=== PATIENT | male | born 1955 | race Caucasian/White ===

== ENCOUNTER → 2017-03-24 | Outpatient (CLI) | payer BC, OTHER ==
[~2017-03-24] MED LIST: ENAL10TA88 PO
== END | disposition home or self-care (01) ==
LOC: C.PATHSPEC 16:54
PROVIDERS: ATTEND Dermatology
DX: L82.1 Other seborrheic keratosis (principal); C44.90 Unspecified malignant neoplasm of skin, unspecified

== ENCOUNTER → 2017-05-07 | Outpatient (CLI) | payer BC, OTHER | END | disposition home or self-care (01) | LOC: C.PATHSPEC 16:57 | PROVIDERS: ATTEND Plastic Surgery | DX: C44.719 Basal cell carcinoma of skin of left lower limb, including hip (principal) ==

== ENCOUNTER 2019-08-08 12:23 | Inpatient (IN) ==
[2019-08-08] MEDS ORDERED: SODIUM CHLORIDE 0.9% 500 ML IV SCH (13:00)
[2019-08-08 13:28] LABS: Appearance Urine Cloudy (Clear); Bacteria Urine Automated Negative (Negative); Blood Urine Negative (Negative); Color Urine Dark Yellow; Glucose Urine UA Negative (Negative); Ketones Urine Negative (Negative); Leukocyte Esterase Urine Negative (Negative); Nitrite Urine Negative (Negative); Protein Urine 1+ (Negative); RBC Urine Automated 0-4 /hpf (0-4); Specific Gravity Urine 1.024 (1.000-1.030); Urobilinogen Urine Negative (Negative)
[2019-08-08 13:32] LABS: Hematocrit (blood only) 24.1 % (42-52); Hemoglobin 7.7 g/dL (14.0-18.0); Mean Corpuscular Hemoglobin 29.1 pg (25-34); Mean Corpuscular Volume 90.9 fL (80-100); RDW Coefficient of Variation 17.5 % (11.5-14.5); RDW Standard Deviation 57.9 fL (36.4-46.3); Red Blood Count 2.65 M/uL (4.7-6.1); White Blood Count 6.32 K/uL (4.8-10.8)
[2019-08-08 13:34] LABS: Mean Platelet Volume 10.1 fL (7.4-10.4); Platelet Count 99 K/uL (130-400)
[2019-08-08 13:41] LABS: Bilirubin Urine Negative (Negative); Ictotest Urine Negative (Negative)
[2019-08-08 13:50] LABS: Albumin Level 2.4 gm/dl (3.4-5.0); BUN Creatinine Ratio 18.8 (10-20); Calcium 8.1 mg/dl (8.5-10.1); Creatinine Clr Calc Pharmacy 84.3 ml/min; Est GFR (African American) 81.5; Est GFR (Non-African American) 70.3; Potassium 3.8 mmol/L (3.5-5.1)
[2019-08-08 14:01] LABS: Basophils # (auto) 0.01 K/uL (0-0.2); Basophils % (auto) 0.2 %; Eosinophils # (auto) 0.06 K/uL (0-0.5); Eosinophils % (auto) 0.9 %; Immature Granulocytes % (auto) 0.3 %; Lymphocytes # (auto) 0.34 K/uL (1.2-3.4); Lymphocytes % (auto) 5.4 %; Monocytes # (auto) 0.32 K/uL (0.11-0.59); Monocytes % (auto) 5.1 %; Neutrophils # (auto) 5.57 K/uL (1.4-6.5); Neutrophils % (auto) 88.1 %
[2019-08-08 14:02] LABS: Basophilic Stippling Occasional; Immature Granulocytes # (auto) 0.02 K/uL (0.00-0.02)
[2019-08-08 14:05] LABS: Amorphous Sediment Urine Present (None Prsent)
[2019-08-08 14:06] LABS: Mucus Urine Present (None Prsent)
--- NOTE | 2019-08-08 14:06 | XRay Report ---
XR chest 1V portable CLINICAL HISTORY: weakness COMPARISON STUDY: Chest CT May 13, 2019. FINDINGS: Lung volumes are normal. Minimal left basilar opacity favors atelectasis. There is no pneum othorax or pleural effusion. Cardiac size is normal. Mediastinal contours are normal. There is no aram dence for pulmonary edema. Right internal jugular [place] is in place IMPRESSION: No acute cardiopulmonary findings. Electronically signed by: Afshin Lehman M.D. 08/08/2019 2:05 PM
--- NOTE | 2019-08-08 14:15 | XRay Report ---
KUB HISTORY: Acute weakness with constipation and abdominal distention constipation, distension, ?obstur ction, known mass COMPARISON: CT abdomen and pelvis 05/13/2019 FINDINGS: Cholecystectomy. Opacity of the left upper quadrant abdomen with displacement of adjacent b owel loops compatible with patient's known large retroperitoneal mass. Bowel gas pattern is nonobstru ctive. Air-filled nondilated loops of large and small bowel are seen within the central and right abd omen. No pneumatosis or pneumoperitoneum. No urolith. Degenerative changes of the spine, pelvis and h ips. Mild fecal retention of the rectum. IMPRESSION: 1. Nonobstructive bowel gas pattern. 2. No pneumatosis or pneumoperitoneum. 3. Opacity of the left upper quadrant abdomen with displacement of adjacent bowel loops correlates wi th patient's known large retroperitoneal mass. Electronically signed by: John Robles M.D. 08/08/2019 2:14 PM
[2019-08-08 14:27] LABS: Albumin Globulin Ratio 0.8 (0.9-2); Bilirubin,Total 0.5 mg/dl (0.2-1); Thyroid Stimulating Hormone 3.7 uIu/ml (0.300-4.500); Total Protein 5.4 gm/dl (6.4-8.2); Troponin I 0.061 ng/ml (0-0.045)
[2019-08-08] MEDS ORDERED: HYDROmorphone INJ 1 MG/ML SYRINGE IV STA (15:11)
[2019-08-08] MEDS ORDERED: ONDANSETRON INJ 2 MG/ML 2 ML VIAL IV STA (15:11)
[2019-08-08] MEDS ORDERED: SODIUM CHLORIDE 0.9% 250 ML IV PRN ×2 (15:37→22:28)
[2019-08-08] MEDS ORDERED: OPTIRAY 320 125ml IV PRN (15:57)
--- NOTE | 2019-08-08 16:16 | CT Scan Report ---
CHEST CTA for PULMONARY ARTERIES CT DOSE: 655.85 mGy.cm HISTORY: Hypoxia. Cancer. Tachycardia. TECHNIQUE: Multiaxial CT images of the chest were performed following the intravenous administration of contrast to evaluate the pulmonary arteries. Maximal intensity projection images were also obtaine d. A dose lowering technique was utilized adhering to the principles of ALARA. COMPARISON STUDY: Chest CTA 05/13/2019. FINDINGS: Normal caliber thoracic aorta with no evidence for dissection. The heart is normal in size. Trace pericardial effusion and a trace left pleural effusion. Motion artifact results in nondiagnost ic evaluation of the majority of the bilateral lower lobe and lingular segmental pulmonary arteries. The remaining pulmonary arteries no filling defects to suggest pulmonary embolus. Right jugular Port- A-Cath terminates within the distal SVC. No suspicious lytic or blastic osseous lesions. Small amount of upper abdominal ascites. Increase in size in a partially visualized necrotic peripancreatic lymph nodes. No mediastinal or hilar lymphadenopathy. Normal esophagus. No pneumothorax. Increase in size in a 7 mm nodule within the left lung apex on image 175. Stable 3 mm nodule within the left lung apex on image 190. Patchy airspace opacities within the base of the left lower lobe. This favors atelecta sis. A pneumonia could also have a similar appearance. A few right basilar linear densities favor sub segmental atelectasis. IMPRESSION: 1. No evidence for pulmonary embolus with limitations as described above. 2. Trace pericardial effusion and a trace left pleural effusion. 3. Small amount of upper abdominal ascites and increase in size in the necrotic peripancreatic lymph nodes. This is consistent with metastatic disease. 4. Increase in size in a 7 mm nodule within the left lung apex. This is also concerning for metastati c disease. 5. Patchy airspace opacities within the base of the left lower lobe. This favors atelectasis. A pneum onia could also have a similar appearance. Electronically signed by: Jose Alexander M.D. 08/08/2019 4:14 PM
--- NOTE | 2019-08-08 16:37 | Emergency Department Note ---
Entered by Michelle Mckeon acting as a scribe for Varun Ernst M.D. History of Present Illness General Chief complaint: Referred by Doctor Stated complaint: POS OBSTRUCTION, BLOOD LEVEL DOWN, POS UTI Time Seen by Provider: 08/08/19 12:42 Source: patient History of Present Illness Onset (ago): week(s) 1 Location: abdomen Severity: similar to prior episodes Pain Consistency: + other (worsening) Maximum Pain Intensity: 10 Quality: + other (abdominal pain) Associated symptoms: + weakness and + other (Abdominal pain, constipation, pancreatic cancer); no fever/chills and no nausea/vomiting Treatments prior to arrival: none The patient is a 63 year old male presenting to the Emergency Department complaining of worsening abdominal pain starting 1 week ago. The patient reports that his abdomen is painful. He states that he is constipated as he hasnt had a bowel movement for the past 5 days but that he has been passing gas. He explains that he feels very weak and tired. 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 He adds that he has a tumor wrapped around some of his intestines. The patient reports that he gets chemotherapy infusions every 7 days. He states that he follows with Dr. Harper oncologist. He notes that he hasnt taken anything for his pain yet. He adds that he has experienced these symptoms before. The patient denies nausea, vomiting, fever and chills. Home Medications Home Medications Medication Instructions Recorded Confirmed Type citalopram 20 mg PO QAM 08/08/19 08/08/19 History hydromorphone 4 mg PO Q4H PRN 08/08/19 08/08/19 History lactulose 30 ml PO TID 08/08/19 08/08/19 History lorazepam 1 mg PO BID PRN 08/08/19 08/08/19 History ondansetron HCl 8 mg PO TID PRN 08/08/19 08/08/19 History Allergies Allergy/AdvReac Type Severity Reaction Status Date / Time No Known Allergies Allergy Verified 08/08/19 13:10 Past Med/Surg History Medical History Anemia Anxiety Valeria Neff virus infection Gout Hypertension Obesity Temporary low platelet count Surgical History History of cholecystectomy History of colonoscopy History of lumbar fusion History of tonsillectomy and adenoidectomy History of tooth extraction wisdom teeth Social History Preferred Language: Colombian Communication Ability: Effective 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 and A total of 10 systems reviewed and were otherwise negative Physical Exam Vital Signs Vital Signs - 24 hr 08/08/19 12:25 08/08/19 12:34 08/08/19 12:43 Temperature 36.9 C Temperature Source Oral Pulse Rate 125 H 115 H 113 H Pulse Rate from SpO2 Sensor 115 H 113 H Respiratory Rate 20 28 H 19 Respiratory Effort / Characteristics Non-Labored Spontaneous Respiratory Depth Normal Respiratory Pattern Regular Blood Pressure 127/76 124/87 Blood Pressure Mean 93 95 Blood Pressure Position Sitting Pulse Oximetry 97 95 95 Oxygen Delivery Method Room Air Room Air Room Air Oxygen Flow Rate Sepsis Recent Fever Within 48 Hours No Sepsis New/Unexplained Change in Mental Status No Sepsis Action Taken by Nursing No Action Required 08/08/19 13:00 08/08/19 13:01 08/08/19 13:11 Temperature Temperature Source Pulse Rate 114 H 113 H Pulse Rate from SpO2 Sensor 114 H 113 H Respiratory Rate 18 18 Respiratory Effort / Characteristics Respiratory Depth Respiratory Pattern Blood Pressure 133/83 Blood Pressure Mean 93 Blood Pressure Position Pulse Oximetry 89 L 88 L 94 Oxygen Delivery Method Room Air Room Air Nasal Cannula Oxygen Flow Rate 2 Sepsis Recent Fever Within 48 Hours Sepsis New/Unexplained Change in Mental Status Sepsis Action Taken by Nursing 08/08/19 13:30 08/08/19 13:31 08/08/19 14:00 Temperature Temperature Source Pulse Rate 110 H 110 H 109 H Pulse Rate from SpO2 Sensor 110 H 111 H 109 H Respiratory Rate 19 21 20 Respiratory Effort / Characteristics Respiratory Depth Respiratory Pattern Blood Pressure 128/80 142/77 H Blood Pressure Mean 87 98 Blood Pressure Position Pulse Oximetry 95 95 94 Oxygen Delivery Method Nasal Cannula Nasal Cannula Nasal Cannula Oxygen Flow Rate 2 2 2 Sepsis Recent Fever Within 48 Hours Sepsis New/Unexplained Change in Mental Status Sepsis Action Taken by Nursing 08/08/19 14:01 08/08/19 14:30 08/08/19 14:31 Temperature Temperature Source Pulse Rate 109 H 107 H 108 H Pulse Rate from SpO2 Sensor 110 H 108 H 108 H Respiratory Rate 20 21 16 Respiratory Effort / Characteristics Respiratory Depth Respiratory Pattern Blood Pressure 122/76 Blood Pressure Mean 92 Blood Pressure Position Pulse Oximetry 97 96 96 Oxygen Delivery Method Nasal Cannula Nasal Cannula Nasal Cannula Oxygen Flow Rate 2 2 2 Sepsis Recent Fever Within 48 Hours Sepsis New/Unexplained Change in Mental Status Sepsis Action Taken by Nursing 08/08/19 14:40 08/08/19 14:50 08/08/19 15:00 Temperature Temperature Source Pulse Rate 144 H 144 H 141 H Pulse Rate from SpO2 Sensor 144 H 143 H 141 H Respiratory Rate 20 19 20 Respiratory Effort / Characteristics Respiratory Depth Respiratory Pattern Blood Pressure 128/85 Blood Pressure Mean 92 Blood Pressure Position Pulse Oximetry 95 97 90 Oxygen Delivery Method Nasal Cannula Nasal Cannula Room Air Oxygen Flow Rate 2 2 Sepsis Recent Fever Within 48 Hours Sepsis New/Unexplained Change in Mental Status Sepsis Action Taken by Nursing 08/08/19 15:01 08/08/19 15:10 08/08/19 15:26 Temperature Temperature Source Pulse Rate 141 H 105 H 116 H Pulse Rate from SpO2 Sensor 141 H 106 H Respiratory Rate 19 18 27 H Respiratory Effort / Characteristics Respiratory Depth Respiratory Pattern Blood Pressure Blood Pressure Mean Blood Pressure Position Pulse Oximetry 90 93 Oxygen Delivery Method Room Air Room Air Oxygen Flow Rate Sepsis Recent Fever Within 48 Hours Sepsis New/Unexplained Change in Mental Status Sepsis Action Taken by Nursing 08/08/19 15:30 08/08/19 15:40 08/08/19 15:50 Temperature Temperature Source Pulse Rate 147 H 147 H 144 H Pulse Rate from SpO2 Sensor 146 H 144 H 144 H Respiratory Rate 18 16 17 Respiratory Effort / Characteristics Respiratory Depth Respiratory Pattern Blood Pressure Blood Pressure Mean Blood Pressure Position Pulse Oximetry 86 L 86 L 95 Oxygen Delivery Method Room Air Room Air Nasal Cannula Oxygen Flow Rate 2 Sepsis Recent Fever Within 48 Hours Sepsis New/Unexplained Change in Mental Status Sepsis Action Taken by Nursing 08/08/19 16:06 08/08/19 16:07 08/08/19 16:10 Temperature Temperature Source Pulse Rate 139 H Pulse Rate from SpO2 Sensor 140 H 140 H 139 H Respiratory Rate 19 23 Respiratory Effort / Characteristics Respiratory Depth Respiratory Pattern Blood Pressure 115/74 Blood Pressure Mean 83 Blood Pressure Position Pulse Oximetry 94 94 95 Oxygen Delivery Method Nasal Cannula Nasal Cannula Nasal Cannula Oxygen Flow Rate 2 2 2 Sepsis Recent Fever Within 48 Hours Sepsis New/Unexplained Change in Mental Status Sepsis Action Taken by Nursing GENERAL: Patient appears fatigued. Awake, alert. HENT: Normocephalic, atraumatic. EYES: Normal conjunctiva. Sclera non-icteric. NECK: Supple. No nuchal rigidity. RESPIRATORY: Clear to auscultation. No wheezes. Normal respiratory effort. CARDIAC: Tachycardic rate. Normal rhythm. Extremities warm and well perfused. GI: Mild diffuse abdominal tenderness. Soft, mildly distended. Not peritoneal. RECTAL: Deferred. MUSCULOSKELETAL: Atraumatic. Chest examination reveals no tenderness. LOWER EXTREMITIES: Calves are equal size bilaterally and non-tender. No edema NEURO: Normal sensorium. No sensory or motor deficits noted. No facial droop. SKIN: Warm and dry. No rash or jaundice noted. Course Course 1250: The patient was evaluated in room C2B, and a complete history and physical examination were performed. 1455: I updated the patient and his at this time. 1504: I discussed the patients case with Dr. Roxann ROD oncologist. He recommend CT to exclude PE and admission. 1516: I updated the patient at this time. 1531: I updated the patient and his at this time. 1620: I discussed the patient's case with Dr. Antwan ROD hospitalist. He will evaluate the patient for further management. Administered Medications Ioversol (Optiray 320 125ml) 117 ml IV ONCE PRN PRN Reason: Interaction Checking Stop: 08/12/19 15:56 Last Admin: 08/08/19 15:58 Dose: 117 ml Documented by: [id number] Discontinued Medications Hydromorphone HCl (Dilaudid) 1 mg IV NOW STA Stop: 08/08/19 15:12 Last Admin: 08/08/19 15:31 Dose: 1 mg Documented by: [id number] Sodium Chloride (Nss) 500 mls @ 999 mls/hr IV .Q31M MAL Stop: 08/08/19 13:30 Last Infusion: 08/08/19 13:55 Dose: 0 mls/hr Documented by: [id number] Admin: 08/08/19 13:24 Dose: 999 mls/hr Documented by: [id number] Ondansetron HCl (Zofran) 4 mg IV NOW STA Stop: 08/08/19 15:12 Last Admin: 08/08/19 15:31 Dose: 4 mg Documented by: [id number] Critical Care Time Critical Care Time: Yes Total Critical Care Time: 42 I have personally spent 42 minutes of critical care time in the direct management of this patient. This includes bedside care, interpretation of diagnostic studies, and testing, discussion with consultants, patient, and family members, and other required patient management activities. This 42 minutes is in excess of all separately billable procedures. Medical Decision Making Differential Diagnosis Differential diagnoses includes but is not limited to gastritis, peptic ulcer disease, GERD, gallbladder disease, pancreatitis, small bowel obstruction, acute coronary syndrome, pericarditis, ischemic bowel, irritable bowel disease, irritable bowel syndrome, appendicitis, diverticulitis, malignancy, hernia, urinary tract infection, torsion, perforation, trauma, infectious. Medical Records Attestation: I reviewed the patient's medical records. Home Medications Current Medication List: was personally reviewed by me Laboratory Data Attestation: I reviewed the patient's lab results. Result diagrams: 08/08/19 13:24 08/08/19 13:24 Lab Results 08/08/19 08/08/19 08/08/19 Range/Units 12:40 13:24 13:24 WBC 6.32 (4.8-10.8) K/uL RBC 2.65 L (4.7-6.1) M/uL Hgb 7.7 L (14.0-18.0) g/dL Hct 24.1 L (42-52) % MCV 90.9 (80-100) fL MCH 29.1 (25-34) pg MCHC 32.0 (32-36) g/dL RDW Std Deviation 57.9 H (36.4-46.3) fL RDW Coeff of Danelle 17.5 H (11.5-14.5) % Plt Count 99 L (130-400) K/uL MPV 10.1 (7.4-10.4) fL Immature Gran % (Auto) 0.3 % Neut % (Auto) 88.1 % Lymph % (Auto) 5.4 % [place] % (Auto) 5.1 % Eos % (Auto) 0.9 % Baso % (Auto) 0.2 % Immature Gran # (Auto) 0.02 (0.00-0.02) K/uL Neut # (Auto) 5.57 (1.4-6.5) K/uL Lymph # (Auto) 0.34 L (1.2-3.4) K/uL [place] # (Auto) 0.32 (0.11-0.59) K/uL Eos # (Auto) 0.06 (0-0.5) K/uL Baso # (Auto) 0.01 (0-0.2) K/uL Basophilic Stippling Occasional Sodium 138 (136-145) mmol/L Potassium 3.8 (3.5-5.1) mmol/L Chloride 104 (98-107) mmol/L Carbon Dioxide 27 (21-32) mmol/L Anion Gap 7.0 (3-11) BUN 21 H (7-18) mg/dl Creatinine 1.11 (0.6-1.4) mg/dl Est Cr Clr Drug Dosing 84.3 ml/min Est GFR ( Amer) 81.5 Est GFR (Non-Af Amer) 70.3 BUN/Creatinine Ratio 18.8 (10-20) Glucose 108 H (70-99) mg/dl Calcium 8.1 L (8.5-10.1) mg/dl Total Bilirubin 0.5 (0.2-1) mg/dl AST 69 H (15-37) U/L ALT 14 (12-78) U/L Alkaline Phosphatase 72 (45-117) U/L Troponin I 0.061 H* (0-0.045) ng/ml Total Protein 5.4 L (6.4-8.2) gm/dl Albumin 2.4 L (3.4-5.0) gm/dl Globulin 3.0 (2.5-4.0) gm/dl Albumin/Globulin Ratio 0.8 L (0.9-2) TSH 3.700 (0.300-4.500) uIu/ml Urine Color Dark Yellow Urine Appearance Cloudy A (Clear) Urine pH 5.0 (4.5-7.5) Ur Specific [place] 1.024 (1.000-1.030) Urine Protein 1+ H (Negative) Urine Glucose (UA) Negative (Negative) Urine Ketones Negative (Negative) Urine Blood Negative (Negative) Urine Nitrite Negative (Negative) Urine Bilirubin Negative (Negative) Urine Urobilinogen Negative (Negative) Ur Leukocyte Esterase Negative (Negative) Urine WBC (Auto) 1-5 (0-5) /hpf Urine RBC (Auto) 0-4 (0-4) /hpf U Hyaline Cast (Auto) Not Reportable U Epithel Cells (Auto) 5-10 H (0-5) /lpf Urine Bacteria (Auto) Negative (Negative) Amorphous Sediment Present A (None Prsent) Granular Casts 10-20 H (0) /lpf Urine Mucus Present A (None Prsent) Urine Yeast Not Reportable Blood Type Antibody Screen Crossmatch 08/08/19 Range/Units 15:27 WBC (4.8-10.8) K/uL RBC (4.7-6.1) M/uL Hgb (14.0-18.0) g/dL Hct (42-52) % MCV (80-100) fL MCH (25-34) pg MCHC (32-36) g/dL RDW Std Deviation (36.4-46.3) fL RDW Coeff of Danelle (11.5-14.5) % Plt Count (130-400) K/uL MPV (7.4-10.4) fL Immature Gran % (Auto) % Neut % (Auto) % Lymph % (Auto) % [place] % (Auto) % Eos % (Auto) % Baso % (Auto) % Immature Gran # (Auto) (0.00-0.02) K/uL Neut # (Auto) (1.4-6.5) K/uL Lymph # (Auto) (1.2-3.4) K/uL [place] # (Auto) (0.11-0.59) K/uL Eos # (Auto) (0-0.5) K/uL Baso # (Auto) (0-0.2) K/uL Basophilic Stippling Sodium (136-145) mmol/L Potassium (3.5-5.1) mmol/L Chloride (98-107) mmol/L Carbon Dioxide (21-32) mmol/L Anion Gap (3-11) BUN (7-18) mg/dl Creatinine (0.6-1.4) mg/dl Est Cr Clr Drug Dosing ml/min Est GFR ( Amer) Est GFR (Non-Af Amer) BUN/Creatinine Ratio (10-20) Glucose (70-99) mg/dl Calcium (8.5-10.1) mg/dl Total Bilirubin (0.2-1) mg/dl AST (15-37) U/L ALT (12-78) U/L Alkaline Phosphatase (45-117) U/L Troponin I (0-0.045) ng/ml Total Protein (6.4-8.2) gm/dl Albumin (3.4-5.0) gm/dl Globulin (2.5-4.0) gm/dl Albumin/Globulin Ratio (0.9-2) TSH (0.300-4.500) uIu/ml Urine Color Urine Appearance (Clear) Urine pH (4.5-7.5) Ur Specific [place] (1.000-1.030) Urine Protein (Negative) Urine Glucose (UA) (Negative) Urine Ketones (Negative) Urine Blood (Negative) Urine Nitrite (Negative) Urine Bilirubin (Negative) Urine Urobilinogen (Negative) Ur Leukocyte Esterase (Negative) Urine WBC (Auto) (0-5) /hpf Urine RBC (Auto) (0-4) /hpf U Hyaline Cast (Auto) U Epithel Cells (Auto) (0-5) /lpf Urine Bacteria (Auto) (Negative) Amorphous Sediment (None Prsent) Granular Casts (0) /lpf Urine Mucus (None Prsent) Urine Yeast Blood Type AB Negative Antibody Screen NEGATIVE Crossmatch See Detail Imaging Data Radiologist's Impression: Radiology results as stated below per my review and the radiologist's interpretation: CHEST CTA for PULMONARY ARTERIES CT DOSE: 655.85 mGy.cm HISTORY: Hypoxia. Cancer. Tachycardia. TECHNIQUE: Multiaxial CT images of the chest were performed following the intravenous administration of contrast to evaluate the pulmonary arteries. Maximal intensity projection images were also obtained. A dose lowering technique was utilized adhering to the principles of ALARA. COMPARISON STUDY: Chest CTA 05/13/2019. FINDINGS: Normal caliber thoracic aorta with no evidence for dissection. The heart is normal in size. Trace pericardial effusion and a trace left pleural effusion. Motion artifact results in nondiagnostic evaluation of the majority of the bilateral lower lobe and lingular segmental pulmonary arteries. The remaining pulmonary arteries no filling defects to suggest pulmonary embolus. Right jugular Port-A-Cath terminates within the distal SVC. No suspicious lytic or blastic osseous lesions. Small amount of upper abdominal ascites. Increase in size in a partially visualized necrotic peripancreatic lymph nodes. No mediastinal or hilar lymphadenopathy. Normal esophagus. No pneumothorax. Increase in size in a 7 mm nodule within the left lung apex on image 175. Stable 3 mm nodule within the left lung apex on image 190. Patchy airspace opacities wi thin the base of the left lower lobe. This favors atelectasis. A pneumonia could also have a similar appearance. A few right basilar linear densities favor subsegmental atelectasis. IMPRESSION: 1. No evidence for pulmonary embolus with limitations as described above. 2. Trace pericardial effusion and a trace left pleural effusion. 3. Small amount of upper abdominal ascites and increase in size in the necrotic peripancreatic lymph nodes. This is consistent with metastatic disease. 4. Increase in size in a 7 mm nodule within the left lung apex. This is also concerning for metastatic disease. 5. Patchy airspace opacities within the base of the left lower lobe. This favors atelectasis. A pneumonia could also have a similar appearance. Electronically signed by: Jose Alexander M.D. 08/08/2019 4:14 PM XR chest 1V portable CLINICAL HISTORY: weakness COMPARISON STUDY: Chest CT May 13, 2019. FINDINGS: Lung volumes are normal. Minimal left basilar opacity favors atelectasis. There is no pneumothorax or pleural effusion. Cardiac size is normal. Mediastinal contours are normal. There is no evidence for pulmonary edema. Right internal jugular [id number] is in place IMPRESSION: No acute cardiopulmonary findings. Electronically signed by: Afshin Lehman M.D. 08/08/2019 2:05 PM KUB HISTORY: Acute weakness with constipation and abdominal distention constipation, distension, ?obsturction, known mass COMPARISON: CT abdomen and pelvis 05/13/2019 FINDINGS: Cholecystectomy. Opacity of the left upper quadrant abdomen with displacement of adjacent bowel loops compatible with patient's known large retroperitoneal mass. Bowel gas pattern is nonobstructive. Air-filled nondilated loops of large and small bowel are seen within the central and right abdomen. No pneumatosis or pneumoperitoneum. No urolith. Degenerative changes of the spine, pelvis and hips. Mild fecal retention of the rectum. IMPRESSION: 1. Nonobstructive bowel gas pattern. 2. No pneumatosis or pneumoperitoneum. 3. Opacity of the left upper quadrant abdomen with displacement of adjacent bowel loops correlates with patient's known large retroperitoneal mass. Electronically signed by: John Robles M.D. 08/08/2019 2:14 PM ECG Data Attestation: I personally reviewed and interpreted this ECG as follows: Indication: + abdominal pain Rate (beats per minute): 113 Rhythm: + sinus tachycardia ECG ST segments: no ST depression ECG Findings: + Other (Prolonged QTC.) Blood Pressure Blood Pressure Findings: Elevated blood pressure Blood Pressure Disposition: further management by hospitalist TATO Linares Patient is a 63-year-old gentleman with a history of gout, hypertension, and pancreatic mass presenting today referred by his oncologist for severe abdominal pain concern for obstruction as he had not a bowel movement in 4 days. Patient currently receiving chemotherapy. Extreme fatigue reported with mild abdominal distention but still passing gas. Some nausea but not impressive vomiting. If concerns for possible anemia, dehydration, obstruction, UTI. Patient appears fatigued. They wish for x-ray of the abdomen to evaluate for obstruction and he wished to defer a abd/pelvis CT scan at this point. Nonobstructive x-ray. Doubt acute intra-abdominal ischemia or free air as the patient's not acutely peritoneal. Not acutely anemic. No evidence of UTI. Hemoglobin 7.7 slightly down trended from 8.6 about a week ago. Thrombocytopenia of 99 is noted and appears to recurrent. No evidence of significant kidney dysfunction. Troponin is somewhat elevated today although without complaint of jacobo chest pain or significant EKG findings. Discussed with the patient's oncologist who recommended admission and to exclude PE. Discussed with patient and family. Transfusion ordered as he may be symptomatic from the hemoglobin 7.7 with a troponin finding. Discussed with oncology. Will order 1 unit of red cells for transfusion as he could be symptomatic from this. Slight troponin elevation is concerning and after discussion with oncology the patient and the patient with care providers at [facility] was agreeable for CT of the chest to exclude PE; no evidence of PE. His evidence of his known cancer is metastatic disease. Atelectasis noted here, lower suspicion this represents pneumonia. Discussed with the hospitalist and the patient require admission in any event. Impression & Plan Anemia, Hypoxia, Elevated troponin, Abdominal pain, Weakness Discharge Plan Visit Data Chief Complaint: Referred by Doctor Stated Complaint: POS OBSTRUCTION, BLOOD LEVEL DOWN, POS UTI ED Provider: Varun Ernst Discharge Problem: Anemia, Hypoxia, Elevated troponin, Abdominal pain, Weakness Patient Disposition: Being Evaluated by Hospitalist Forms Stand Alone Forms: My [facility] Prescriptions Prescriptions: No Action ondansetron HCl 8 mg tablet 8 mg PO TID PRN (Reason: Nausea) RF: 0 hydromorphone 2 mg tablet 4 mg PO Q4H PRN (Reason: Pain) RF: 0 citalopram 20 mg tablet 20 mg PO QAM RF: 0 lorazepam 1 mg tablet 1 mg PO BID PRN (Reason: Sleep) RF: 0 lactulose 10 gram/15 mL solution 30 ml PO TID RF: 0 Referrals Referrals: Stephen Lock MD [Primary Care Provider] - Discharge Problem: Anemia Qualifiers: Anemia type: unspecified type Qualified Code(s): D64.9 - Anemia, unspecified Abdominal pain Qualifiers: Abdominal location: unspecified location Qualified Code(s): R10.9 - Unspecified abdominal pain The scribe's documentation has been prepared under my direction and personally reviewed by me in its entirety. I confirm that the note above accurately reflects all work, treatment, procedures, and medical decision making performed by me.
[2019-08-08] MEDS ORDERED: CITALOPRAM 20 MG TAB PO STA (17:05)
--- NOTE | 2019-08-08 17:23 | History & Physical Report ---
Date of Service August 08, 2019 Assessment & Plan (1) Pancreatic cancer: - Admit to med surg - Pancreatic sarcoma, diagnosed April 2019, follow with Dr. Mckenzie with [facility] - Continue Eribulin chemotherapy per oncology - Consult oncology, Dr. Dunne - Bowel regimen ordered (2) Weakness: - PT/OT consults (3) Constipation: - Order fleets enema now stat, may need to repeat. Continue lactulose and colace. - No obstruction seen on KUB within bowels, pancreatic mass and bowel loops surrounding mass causing constipation. - Encourage liquids PO to help keep bowels soft (4) Abdominal pain: - Well controlled currently, Q4H Was administered Dilaudid 1 mg IV in the ER, has good results from this medication. Allow IV meds for now. - Narcan as needed - Was taking Dilaudid p.o. 4 mg Q4H scheduled vs prn at home and likely contributed to the patient's constipation - hold for now with IV dilaudid as above. (5) Elevated troponin: -Elevated at 0.061, trend next set at 2000 -EKG reviewed, showing sinus tachycardia likely due to low blood volume with Hgb = 7.7, HCT = 24.1 -Without cardiac symptoms, no chest pain, no shortness of breath, no pressure, no palpitations -Trend H&H with next troponin, OR with am labs if the second unit of PRBCs has not finished infusing. -Noted mild pericardial effusion on imaging, monitor for now. Consider echo if any cardiac complaints or elevation in troponin. (6) Hypoxia: -Initially was hypoxic at 86% on room air, continue on 2L via NC, currently sats in the mid 90s - Does not wear o2 at home - Did not require narcan but has been ordered prn if any changes in respiratory status - CTPE negative for PE, shows mild Left pleural effusion (7) Sarcopenia: -Albumin 2.4, discussion regarding boost supplementation was held at bedside with the family. They note that the patient has difficulty with boost when it is mixed with milk. I suggested using almond milk/coconut milk or Lactaid which has lactose removed if this is the bloating factor for causing the patient's abdominal discomfort. Will order boost while in the hospital. (8) DVT prophylaxis: -Lovenox, ambulatory CODE STATUS-DNR Disposal: Patient from home, PT/OT, case management to assist with discharge management History of Present Illness Primary Care Provider: Stephen Lock MD This is a 63-year-old male with PMHx of pancreatic sarcoma, diagnosed in April 2019, anemia, and weakness. The patient's family is present with him at bedside. His notes that this morning he seemed to be more confused, hallucinating and seeing things that were not really present in their home. She reports that he has been more weak in the last 2 days. He has not moved his bowels in the last 5 days. In regards to abdominal distention and bloating, patient feels this has worsened despite bowel regimen with lactulose, Colace, MiraLAX at home. He started lactulose yesterday and have his received a few doses but still not produced a bowel movement. His appetite has been very poor recently due to disinterest in food. He denies nausea or vomiting today. Patient denies any specific abdominal pain currently after receiving IV medication in the ER. Patient follows with Dr. Carmona at [facility] for oncology. He follows with Dr. Dunne at the [facility] [place] here for chemotherapy. Patient has underwent 4 cycles of doxorubicin, however did not see positive results so has been switched over to Eribulin where he received his first cycle on 08/04/2019. His next scheduled dose will be on 08/12/19. Here in the ER and patient is found to have a hemoglobin of 7.7, currently being transfused his first unit out of 2, also noted to have elevated troponin of 0.061, albumin 2.4. Other labs are WNL. Allergies Allergy/AdvReac Type Severity Reaction Status Date / Time No Known Allergies Allergy Verified 08/08/19 13:10 Home Medications Home Medications Medication Instructions Recorded Confirmed Type citalopram 20 mg PO QAM 08/08/19 08/08/19 History hydromorphone 4 mg PO Q4H PRN 08/08/19 08/08/19 History lactulose 30 ml PO TID 08/08/19 08/08/19 History lorazepam 1 mg PO BID PRN 08/08/19 08/08/19 History ondansetron HCl 8 mg PO TID PRN 08/08/19 08/08/19 History Past Med/Surg History Medical History Anemia Anxiety Valeria Neff virus infection Gout Hypertension Obesity Temporary low platelet count Surgical History History of cholecystectomy History of colonoscopy History of lumbar fusion History of tonsillectomy and adenoidectomy History of tooth extraction wisdom teeth Social History Preferred Language: Lithuanian Communication Ability: Effective 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 Beliefs That Will Affect Care: None Current Living Situation: Spouse Feels Safe at Home: Yes Smoking Status: Never smoker Second Hand Exposure: No ; Hx Alcohol Use: Yes Alcohol type: beer Hx Substance Use: No Review of Systems Review of Systems: Constitutional: No fever, sweats or chills Eyes: No diplopia, no worsening or blurred vision ENT: normal hearing, no trouble swallowing Respiratory: No cough, sputum, dyspnea at rest or on exertion Cardiovascular: No chest pain, tightness or palpitations Abdomen: No pain, nausea, vomiting,+ Bloating and constipation x 5 d Musculoskeletal: No joint pain, calf pain, swelling Neurologic: + generalized weakness, no numbness/tingling, or balance problems Psychiatric: No anxiety or depression Skin: No rash or itch Physical Exam Physical Exam: General: awake, alert, no apparent distress, + pallor, appears fatigued Head: + Alopecia, normocephalic, atraumatic ENT: PERRL, EOMI, no pharyngeal exudate, mucous membranes slightly dry Chest: Port accessed in right upper chest wall, clear to auscultation, on room air, no adventitious breath sounds Cardiac: + Sinus tach, no murmur, no JVD, normal peripheral pulses, good capillary refill Abdominal: NABS x 4 quadrants, + distended, soft, nontender to palpation, no rebound, guarding or tenderness Extremities: Normal inspection, no peripheral edema or erythema, calfs nontender to palpation Psych: Normal mood and affect Neuro: AAO x 3, strength intact bilaterally and related 5/5, no motor deficits, speech is clear, no peripheral sensory deficits Skin: no rash or erythema Results & Data Vital Signs (Past 12 Hours) Vital Signs Temp Pulse Resp BP Pulse Ox 08/08/19 17:11 37.1 C 105 H 17 109/75 97 08/08/19 16:53 37.1 C 140 H 13 101/71 96 08/08/19 16:50 140 H 19 95 08/08/19 16:40 140 H 17 95 08/08/19 16:31 141 H 18 95 08/08/19 16:30 141 H 18 102/70 95 08/08/19 16:20 140 H 17 96 08/08/19 16:10 139 H 23 95 08/08/19 16:07 19 115/74 94 08/08/19 16:06 94 08/08/19 15:50 144 H 17 95 08/08/19 15:40 147 H 16 86 L 08/08/19 15:30 147 H 18 86 L 08/08/19 15:26 116 H 27 H 08/08/19 15:10 105 H 18 93 08/08/19 15:01 141 H 19 90 08/08/19 15:00 141 H 20 128/85 90 08/08/19 14:50 144 H 19 97 08/08/19 14:40 144 H 20 95 08/08/19 14:31 108 H 16 96 08/08/19 14:30 107 H 21 122/76 96 08/08/19 14:01 109 H 20 97 08/08/19 14:00 109 H 20 142/77 H 94 08/08/19 13:31 110 H 21 95 08/08/19 13:30 110 H 19 128/80 95 08/08/19 13:11 94 08/08/19 13:01 113 H 18 88 L 08/08/19 13:00 114 H 18 133/83 89 L 08/08/19 12:43 113 H 19 95 08/08/19 12:34 115 H 28 H 124/87 95 08/08/19 12:25 36.9 C 125 H 20 127/76 97 Diagnostic Findings XR chest 1V portable CLINICAL HISTORY: weakness COMPARISON STUDY: Chest CT May 13, 2019. FINDINGS: Lung volumes are normal. Minimal left basilar opacity favors atelectasis. There is no pneumothorax or pleural effusion. Cardiac size is normal. Mediastinal contours are normal. There is no evidence for pulmonary edema. Right internal jugular Avpnly-x-[id number] is in place IMPRESSION: No acute cardiopulmonary findings. KUB HISTORY: Acute weakness with constipation and abdominal distention constipation, distension, ?obsturction, known mass COMPARISON: CT abdomen and pelvis 05/13/2019 FINDINGS: Cholecystectomy. Opacity of the left upper quadrant abdomen with dis placement of adjacent bowel loops compatible with patient's known large retroperitoneal mass. Bowel gas pattern is nonobstructive. Air-filled nondilated loops of large and small bowel are seen within the central and right abdomen. No pneumatosis or pneumoperitoneum. No urolith. Degenerative changes of the spine, pelvis and hips. Mild fecal retention of the rectum. IMPRESSION: 1. Nonobstructive bowel gas pattern. 2. No pneumatosis or pneumoperitoneum. 3. Opacity of the left upper quadrant abdomen with displacement of adjacent bowel loops correlates with patient's known large retroperitoneal mass. CHEST CTA for PULMONARY ARTERIES CT DOSE: 655.85 mGy.cm HISTORY: Hypoxia. Cancer. Tachycardia. TECHNIQUE: Multiaxial CT images of the chest were performed following the intravenous administration of contrast to evaluate the pulmonary arteries. Maximal intensity projection images were also obtained. A dose lowering technique was utilized adhering to the principles of ALARA. COMPARISON STUDY: Chest CTA 05/13/2019. FINDINGS: Normal caliber thoracic aorta with no evidence for dissection. The heart is normal in size. Trace pericardial effusion and a trace left pleural effusion. Motion artifact results in nondiagnostic evaluation of the majority of the bilateral lower lobe and lingular segmental pulmonary arteries. The remaining pulmonary arteries no filling defects to suggest pulmonary embolus. Right jugular Port-A-Cath terminates within the distal SVC. No suspicious lytic or blastic osseous lesions. Small amount of upper abdominal ascites. Increase in size in a partially visualized necrotic peripancreatic lymph nodes. No mediastinal or hilar lymphadenopathy. Normal esophagus. No pneumothorax. Increase in size in a 7 mm nodule within the left lung apex on image 175. Stable 3 mm nodule within the left lung apex on image 190. Patchy airspace opacities within the base of the left lower lobe. This favors atelectasis. A pneumonia could also have a similar appearance. A few right basilar linear densities favor subsegmental atelectasis. IMPRESSION: 1. No evidence for pulmonary embolus with limitations as described above. 2. Trace pericardial effusion and a trace left pleural effusion. 3. Small amount of upper abdominal ascites and increase in size in the necrotic peripancreatic lymph nodes. This is consistent with metastatic disease. 4. Increase in size in a 7 mm nodule within the left lung apex. This is also concerning for metastatic disease. 5. Patchy airspace opacities within the base of the left lower lobe. This favors atelectasis. A pneumonia could also have a similar appearance. ECG Additional Comments: 08-AUG-2019 13:08:21 [facility]-EDSTAT ROUTINE RETRIEVAL Sinus tachycardia Nonspecific T wave abnormality Prolonged QT Abnormal ECG When compared with ECG of 03-AUG-2019 16:08, Nonspecific T wave abnormality now evident in Anterior leads Confirmed by Brooks Chu ([id number]) on 08/08/2019 5:16:17 PM 25mm/s 10mm/mV 150Hz 9.0.9 12SL 241 TOI: 15 Referred by: ED Confirmed By: Brooks Chu Vent. rate [address] interval 112 ms QRS duration 72 ms QT/QTc 454/622 ms P-R-T axes * -8 43 Code Status & VTE Plan Code Status DNR-discussed with the patient and his family at bedside PG Care Time/CCT Total # of Minutes Spent Total Time Spent with Patient: Total time spent is greater than 50% in co ordination of care (as documented) at patient's floor/unit and/or counseling patient: (1) Abdominal pain Abdominal location: unspecified location Qualified Code(s): R10.9 - Unspecified abdominal pain
[2019-08-08] MEDS ORDERED: SOD PHOSPHATE/SOD BIPHOSPHATE ENEMA 132 ML BTL PR STA (18:20)
[2019-08-08] MEDS: HYDROmorphone INJ 1 MG/ML SYRINGE IV PRN ×2 (18:36→22:22)
[2019-08-08] MEDS ORDERED: ACETAMINOPHEN 325 MG TAB PO PRN (20:18)
[2019-08-08] MEDS ORDERED: NALOXONE HCL 0.4 MG/1 ML VIAL/CARP IV PRN (20:18)
[2019-08-08] MEDS ORDERED: ONDANSETRON 8 MG TABLET PO PRN (20:18)
[2019-08-08] MEDS ORDERED: SOD PHOSPHATE/SOD BIPHOSPHATE ENEMA 132 ML BTL PR PRN (20:18)
[2019-08-08] MEDS ORDERED: HYDROmorphone HCL 2 MG TAB PO PRN ×2 (20:18)
[2019-08-08] MEDS ORDERED: HEPARIN 100 UNIT/ML 5ML FLUSH ONE (21:02)
[2019-08-08] MEDS: LACTULOSE SYRUP 20 GM/30 ML UDC PO SCH (21:21)
[2019-08-08] MEDS: DOCUSATE SODIUM 100 MG CAP PO SCH (21:21)
[2019-08-08] MEDS: LORazepam 1 MG TAB PO PRN (21:26)
[2019-08-08 22:09] LABS: Hematocrit (blood only) 21.1 % (42-52); Hemoglobin 6.7 g/dL (14.0-18.0)
[2019-08-08] MEDS: HEPARIN 100 UNIT/ML 5ML FLUSH FLUSH PRN (22:17)
[2019-08-08 22:25] LABS: Hematocrit (blood only) 20.9 % (42-52); Hemoglobin 6.6 g/dL (14.0-18.0)
[2019-08-09] MEDS: HYDROmorphone INJ 1 MG/ML SYRINGE IV PRN ×6 (02:29→23:27)
[2019-08-09] MEDS: ONDANSETRON INJ 2 MG/ML 2 ML VIAL IV PRN (02:29)
[2019-08-09] MEDS: HEPARIN 100 UNIT/ML 5ML FLUSH FLUSH PRN ×3 (03:23→17:42)
[2019-08-09 06:38] LABS: Hematocrit (blood only) 20.9 % (42-52); Hemoglobin 6.7 g/dL (14.0-18.0); Mean Corpuscular Hgb Conc 32.1 g/dL (32-36); Mean Corpuscular Volume 87.4 fL (80-100); Mean Platelet Volume 10.8 fL (7.4-10.4); Platelet Count 104 K/uL (130-400); RDW Coefficient of Variation 17.8 % (11.5-14.5); RDW Standard Deviation 56.8 fL (36.4-46.3); Red Blood Count 2.39 M/uL (4.7-6.1); White Blood Count 5.97 K/uL (4.8-10.8)
[2019-08-09 07:07] LABS: Albumin Level 2.3 gm/dl (3.4-5.0); BUN Creatinine Ratio 18.3 (10-20); Calcium 7.9 mg/dl (8.5-10.1); Creatinine Clr Calc Pharmacy 82.3 ml/min; Est GFR (African American) 79.7; Est GFR (Non-African American) 68.8; Potassium 3.9 mmol/L (3.5-5.1)
[2019-08-09 07:10] LABS: Albumin Globulin Ratio 0.8 (0.9-2); Bilirubin,Total 0.7 mg/dl (0.2-1); Globulin 2.8 gm/dl (2.5-4.0); Total Protein 5.1 gm/dl (6.4-8.2)
[2019-08-09] MEDS ORDERED: SODIUM CHLORIDE 0.9% 250 ML IV PRN (08:30)
[2019-08-09] MEDS ORDERED: ENOXAPARIN INJ 40 MG/0.4 ML SYR SQ SCH ×2 (09:00→16:30)
[2019-08-09] MEDS ORDERED: VANCOMYCIN CONSULT ACTIVE PRN (09:36)
[2019-08-09] MEDS ORDERED: VANCOMYCIN HCL 1,000 MG in SODIUM CHLORIDE 0.9% 250 ML IV SCH (09:45)
--- NOTE | 2019-08-09 09:53 | Hospitalist Progress Note ---
Date of Service August 09, 2019 Assessment & Plan (1) Acute metabolic encephalopathy: Presented with hallucinations, profound fatigue in setting of recent chemotherapy with Eribulin on 08/04. Could be secondary to severe anemia, hypoxia, infection (suspected PNA as below), opioid pain medication use, constipation Improved mental status now that constipation improving, PRBC transfusion. -Follow (2) Weakness: Secondary to chemotherapy effect, severe anemia, possible PNA -treating with transfusional support, antibiotics, is improving - PT/OT consults (3) Constipation: Likely opioid induced Now with medium nonbloody stool after receiving Fleets enema upon admission -Continue lactulose and colace. - No obstruction seen on KUB or CT abd/pel, but duodenum is being pushed out due to invasion of retroperitoneal space - pancreatic mass and bowel loops surrounding mass causing constipation. 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 4 mg Q4H scheduled vs prn at home and likely contrib uted to the patient's constipation -continue pain control, add on Pepcid -continue to work on constipation (5) Elevated troponin: -Elevated at 0.061/0.06/0.055 Denies chest pain -EKG with nonspecific TW changes anterior leads, prolonged QTc 622--> repeat ECG then with resolution of TWIs and QTc now normal -Noted mild pericardial effusion on imaging -ECHO with +WMA moderate inferior and septal hypokinesis, preserved LVEF, new from previous ECHO 04/2019 -not a good candidate to undergo cardiac cath and doubt would help him at all -consult Cardiology for further opinion -moved to telemetry monitoring More likely myocardial demand ischemia in setting of severe anemia, suspected PNA (6) Hypoxia: -Initially was hypoxic at 86% on room air, continue on 2L via NC, currently sats in the mid 90s - Does not wear o2 at home - CTPE negative for PE, shows mild Left pleural effusion and possible LLL infiltrate vs atelectasis CT abd/pel shows extensive atelectasis L>>R in lower lobes Likely secondary to atelectasis from splinting due to abdominal pain Also suspected PNA and given that he is immunosupressed, will treat with Cefepime and Vanco -check MRSA swab -encouraged incentive spiromaetry -continue O2 as needed to keep POx>94% (7) Anemia: Secondary likely to chemotherapy Hgb only up to 6/7 after 2 units PRBCs overnight. 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 Dunne, appreciated -pain control, bowel regimen (13) Fatigue: secondary to chemotherapy vs infection, anemia as above -UA normal -transfuse, continue abx for PNA PT/OT consults placed (14) Elevated transaminase level: mild elevation in AST 60 which is down from previous (15) GERD (gastroesophageal reflux disease): start Pepcid 20mg IV bid for heartburn (16) DVT prophylaxis: -Lovenox, ambulatory, scd CODE STATUS-DNR Disposal: Patient from home, PT/OT, case management to assist with discharge management Subjective I saw this patient on 4 different occasions today and spent 90 minutes in prolonged service time in discussion with the pat, reviewing results, updating multiple family members at the bedside, discussing his case with specialists, and coordinating care with nursing staff. Pt no longer having hallucinations and not confused. Reports he has been profoundly fatigued x 3 days prior to admission, was lying in bed. Has a lot of pain in left upper abdomen if he takes a deep breath so he has been splinting on that side. Denies headache or lightheadedness, no vision changes, no sore thr oat, no rhinorrhea, no cough, no fevers/chills/sweats. No chest pain or SOB. He does remain hypoxic and is requiring supplemental O2. He is having abd pain and bloating, a lot of indigestion, but is passing gas. He does report his abdomen feels better today since he had a brown BM last evening after receiving a Fleets enema. Denies any N/V, no hematemesis, no hematochezia or melena, no hematuria, no back pain, no other obvious bleeding. and sister ask about if he should be transferred to [facility] and we discussed probably not necessary at this time as his acute issues are being nima zoey here, however Dr. Dunne his oncologist here has reached out to the patient's Oncologist at [facility] and is awaiting a return call this evening. Review of Systems Review of Systems: All systems reviewed & are unremarkable except as noted in HPI & below (no urinary symptoms. He has been constipated for 4-5 days prior to admission) Physical Exam Constitutional: WD/WN, vitals as above (with alopecia) Eyes: PERRL, conjunctivae normal, anicteric sclerae ENMT: external ear and nose normal, oropharynx normal Neck: trachea midline, no thyromegaly Respiratory: normal respiratory effort (with NC in place); no labored breathing, does not use accessory muscles and not tachypneic Auscultation: + crackles (at bases bilat); no rhonchi and no wheezes Cardiovascular: RRR, no murmur, no edema Chest (Breasts): Chest: normal inspection of chest Gastrointestinal (Abdomen): Inspection/Auscultation: abdomen normal to inspection, + abdomen distended (mild) and normal bowel sounds; Martin-Castillo sign absent Percussion/Palpation: + abdomen tender (across entire upper abdomen), abdomen soft and + hepatomegaly; no guarding and abdomen not rigid Musculoskeletal: Extremities: extremities normal to inspection; no cyanosis and no clubbing Skin: no rashes, warm and dry Neurologic: moves all extremities and awake; no focal motor deficits Psychiatric: A+Ox3, euthymic affect Lymphatic: + cervical lymphadenopathy (on right anterior cervical); no lymphedema Results & Data Vital Signs (Past 12 Hours) Vital Signs Temp Pulse Pulse Resp BP BP Pulse Ox 08/09/19 09:45 37.1 C 97 H 114/73 08/09/19 09:30 37.1 C 103 H 16 128/79 95 08/09/19 09:11 36.8 C 103 H 18 112/77 97 08/09/19 06:42 36.4 C L 104 H 18 120/78 98 08/09/19 03:15 37.0 C 99 H 18 110/76 96 08/09/19 02:15 36.8 C 108 H 16 124/83 94 08/09/19 01:15 36.9 C 110 H 18 119/77 94 08/09/19 00:45 37 C 112 H 18 124/78 93 08/09/19 00:30 36.7 C 108 H 16 120/78 94 08/09/19 00:09 37.2 C 109 H 16 116/77 95 08/08/19 23:39 37.0 C 103 H 18 122/77 95 Laboratory Results 08/09/19 08/09/19 08/09/19 Range/Units 20:00 19:05 15:00 WBC 8.35 (4.8-10.8) K/uL RBC 3.04 L (4.7-6.1) M/uL Hgb 8.4 L (14.0-18.0) g/dL Hct 26.5 L (42-52) % MCV 87.2 (80-100) fL MCH 27.6 (25-34) pg MCHC 31.7 L (32-36) g/dL RDW Std Deviation 54.4 H (36.4-46.3) fL RDW Coeff of Danelle 17.2 H (11.5-14.5) % Plt Count 116 L (130-400) K/uL MPV 10.2 (7.4-10.4) fL Immature Gran % (Auto) 0.7 % Neut % (Auto) 88.2 % Lymph % (Auto) 5.5 % [place] % (Auto) 4.4 % Eos % (Auto) 0.8 % Baso % (Auto) 0.4 % Immature Gran # (Auto) 0.06 H (0.00-0.02) K/uL Neut # (Auto) 7.36 H (1.4-6.5) K/uL Lymph # (Auto) 0.46 L (1.2-3.4) K/uL [place] # (Auto) 0.37 (0.11-0.59) K/uL Eos # (Auto) 0.07 (0-0.5) K/uL Baso # (Auto) 0.03 (0-0.2) K/uL Sodium (136-145) mmol/L Potassium (3.5-5.1) mmol/L Chloride (98-107) mmol/L Carbon Dioxide (21-32) mmol/L Anion Gap (3-11) BUN (7-18) mg/dl Creatinine (0.6-1.4) mg/dl Est Cr Clr Drug Dosing ml/min Est GFR ( Amer) Est GFR (Non-Af Amer) BUN/Creatinine Ratio (10-20) Glucose (70-99) mg/dl Calcium (8.5-10.1) mg/dl Magnesium 2.0 (1.8-2.4) mg/dl Iron 18 L (35-175) mcg/dl TIBC 188 L (250-450) mcg/dl Transferrin 150 L (200-360) mg/dl Transferrin % Sat 8 L (20-50) % Ferritin 3226.8 H (8-388) ng/ml Total Bilirubin (0.2-1) mg/dl AST (15-37) U/L ALT (12-78) U/L Alkaline Phosphatase (45-117) U/L Troponin I (0-0.045) ng/ml Total Protein (6.4-8.2) gm/dl Albumin (3.4-5.0) gm/dl Globulin (2.5-4.0) gm/dl Albumin/Globulin Ratio (0.9-2) Nasal Screen MRSA (PCR) (Negative) Stool Occult Bld Scrn Negative (Negative) Influenza Type A (PCR) (Neg) Influenza Type B (PCR) (Neg) Blood Type Antibody Screen Crossmatch 08/09/19 08/09/19 08/09/19 Range/Units 10:21 09:40 08:54 WBC (4.8-10.8) K/uL RBC (4.7-6.1) M/uL Hgb (14.0-18.0) g/dL Hct (42-52) % MCV (80-100) fL MCH (25-34) pg MCHC (32-36) g/dL RDW Std Deviation (36.4-46.3) fL RDW Coeff of Danelle (11.5-14.5) % Plt Count (130-400) K/uL MPV (7.4-10.4) fL Immature Gran % (Auto) % Neut % (Auto) % Lymph % (Auto) % [place] % (Auto) % Eos % (Auto) % Baso % (Auto) % Immature Gran # (Auto) (0.00-0.02) K/uL Neut # (Auto) (1.4-6.5) K/uL Lymph # (Auto) (1.2-3.4) K/uL [place] # (Auto) (0.11-0.59) K/uL Eos # (Auto) (0-0.5) K/uL Baso # (Auto) (0-0.2) K/uL Sodium (136-145) mmol/L Potassium (3.5-5.1) mmol/L Chloride (98-107) mmol/L Carbon Dioxide (21-32) mmol/L Anion Gap (3-11) BUN (7-18) mg/dl Creatinine (0.6-1.4) mg/dl Est Cr Clr Drug Dosing ml/min Est GFR ( Amer) Est GFR (Non-Af Amer) BUN/Creatinine Ratio (10-20) Glucose (70-99) mg/dl Calcium (8.5-10.1) mg/dl Magnesium (1.8-2.4) mg/dl Iron (35-175) mcg/dl TIBC (250-450) mcg/dl Transferrin (200-360) mg/dl Transferrin % Sat (20-50) % Ferritin (8-388) ng/ml Total Bilirubin (0.2-1) mg/dl AST (15-37) U/L ALT (12-78) U/L Alkaline Phosphatase (45-117) U/L Troponin I 0.055 H* (0-0.045) ng/ml Total Protein (6.4-8.2) gm/dl Albumin (3.4-5.0) gm/dl Globulin (2.5-4.0) gm/dl Albumin/Globulin Ratio (0.9-2) Nasal Screen MRSA (PCR) Negative (Negative) Stool Occult Bld Scrn (Negative) Influenza Type A (PCR) Neg for Influ A (Neg) Influenza Type B (PCR) Neg for Influ B (Neg) Blood Type Antibody Screen Crossmatch 08/09/19 08/09/19 08/08/19 Range/Units 05:40 05:40 15:27 WBC 5.97 (4.8-10.8) K/uL RBC 2.39 L (4.7-6.1) M/uL Hgb 6.7 L* (14.0-18.0) g/dL Hct 20.9 L* (42-52) % MCV 87.4 (80-100) fL MCH 28.0 (25-34) pg MCHC 32.1 (32-36) g/dL RDW Std Deviation 56.8 H (36.4-46.3) fL RDW Coeff of Danelle 17.8 H (11.5-14.5) % Plt Count 104 L (130-400) K/uL MPV 10.8 H (7.4-10.4) fL Immature Gran % (Auto) % Neut % (Auto) % Lymph % (Auto) % [place] % (Auto) % Eos % (Auto) % Baso % (Auto) % Immature Gran # (Auto) (0.00-0.02) K/uL Neut # (Auto) (1.4-6.5) K/uL Lymph # (Auto) (1.2-3.4) K/uL [place] # (Auto) (0.11-0.59) K/uL Eos # (Auto) (0-0.5) K/uL Baso # (Auto) (0-0.2) K/uL Sodium 140 (136-145) mmol/L Potassium 3.9 (3.5-5.1) mmol/L Chloride 105 (98-107) mmol/L Carbon Dioxide 30 (21-32) mmol/L Anion Gap 4.0 (3-11) BUN 21 H (7-18) mg/dl Creatinine 1.13 (0.6-1.4) mg/dl Est Cr Clr Drug Dosing 82.3 ml/min Est GFR ( Amer) 79.7 Est GFR (Non-Af Amer) 68.8 BUN/Creatinine Ratio 18.3 (10-20) Glucose 99 (70-99) mg/dl Calcium 7.9 L (8.5-10.1) mg/dl Magnesium (1.8-2.4) mg/dl Iron (35-175) mcg/dl TIBC (250-450) mcg/dl Transferrin (200-360) mg/dl Transferrin % Sat (20-50) % Ferritin (8-388) ng/ml Total Bilirubin 0.7 (0.2-1) mg/dl AST 60 H (15-37) U/L ALT 12 (12-78) U/L Alkaline Phosphatase 70 (45-117) U/L Troponin I (0-0.045) ng/ml Total Protein 5.1 L (6.4-8.2) gm/dl Albumin 2.3 L (3.4-5.0) gm/dl Globulin 2.8 (2.5-4.0) gm/dl Albumin/Globulin Ratio 0.8 L (0.9-2) Nasal Screen MRSA (PCR) (Negative) Stool Occult Bld Scrn (Negative) Influenza Type A (PCR) (Neg) Influenza Type B (PCR) (Neg) Blood Type AB Negative Antibody Screen NEGATIVE Crossmatch See Detail Diagnostic Findings CT abd/pel with IV/po contrast: IMPRESSION: 1. Overall increase in size of the multilobular multifocal retroperitoneal masses. The prior dominant component has decreased in size though the vast majority of the additional components have increased in size. 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 2. Retroperitoneal lymphadenopathy not demonstrably discrete from the retroperitoneal masses on the current exam. 3. Left adrenal metastatic involvement as on prior. 4. No evidence of a retroperitoneal hematoma. 5. Small volume of abdominopelvic ascites. ECG Additional Comments: ECG 08/09 with normal QTc 450, sinus rhythm, no further nonspecific TW changes anterior leads PG Care Time/CCT Total # of Minutes Spent Total Time Spent with Patient: Total time spent is greater than 50% in coordination of care (as documented) at patient's floor/unit and/or counseling patient: Prolonged Care Time Prolonged Care Time: Yes Total Prolonged Care Time: 90 (1) Abdominal pain Abdominal location: unspecified location Qualified Code(s): R10.9 - Unspecified abdominal pain (2) Anemia Anemia type: unspecified type Qualified Code(s): D64.9 - Anemia, unspecified
[2019-08-09] MEDS ORDERED: VANCOMYCIN HCL 2,500 MG in SODIUM CHLORIDE 0.9% 500 ML IV ONE (10:00)
[2019-08-09] MEDS: CITALOPRAM 20 MG TAB PO SCH (10:14)
[2019-08-09] MEDS: LACTULOSE SYRUP 20 GM/30 ML UDC PO SCH ×3 (10:38→22:00)
[2019-08-09] MEDS: DOCUSATE SODIUM 100 MG CAP PO SCH ×2 (10:38→22:01)
--- NOTE | 2019-08-09 10:45 | Pharmacy Report ---
Pharmacy Abx Initial Consult - Date of Service August 09, 2019 - Pharmacy Dosing Scope Date of Consult: 08/09 Consultation requested by: Dr. Hahn Pharmacy is consulted to initiate vancomycin IV/PO dosing therapy, order appropriate labs and adjust drug dose/frequency. - Subjective The patient is a 63 year old M admitted on 08/08/19 17:54. - Objective Height: 6 ft Weight: 101 kg Vital Signs (Past 12hrs): Vital Signs Temp Pulse Pulse Resp BP BP Pulse Ox 08/09/19 10:10 36.8 C 102 H 18 108/74 95 08/09/19 09:45 37.1 C 97 H 114/73 08/09/19 09:30 37.1 C 103 H 16 128/79 95 08/09/19 09:11 36.8 C 103 H 18 112/77 97 08/09/19 06:42 36.4 C L 104 H 18 120/78 98 08/09/19 03:15 37.0 C 99 H 18 110/76 96 08/09/19 02:15 36.8 C 108 H 16 124/83 94 08/09/19 01:15 36.9 C 110 H 18 119/77 94 08/09/19 00:45 37 C 112 H 18 124/78 93 08/09/19 00:30 36.7 C 108 H 16 120/78 94 08/09/19 00:09 37.2 C 109 H 16 116/77 95 08/08/19 23:39 37.0 C 103 H 18 122/77 95 Lab Results (24hrs): Laboratory Tests (24 Hours) 08/09/19 08/09/19 08/08/19 05:40 05:40 13:24 WBC 5.97 Neut # (Auto) Creatinine 1.13 1.11 Est Cr Clr Drug Dosing 82.3 84.3 - Risk Factors for Resistance * Immunocompromised (chemotherapy) - Assessment & Plan Assessment 63 year old male admitted with possible pneumonia. PMHx significant for pancreatic sarcoma, receiving chemo outpatient. Per provider notes, patient confused more recently. Unable to move bowels in last 5 days and increased abdomen distention also reported. Patient started on broad antibiotic coverage on admission. Nasal swab and flu pending Plan Vancomycin IV * Received loading dose of vancomycin 2500 mg (~25 mg/kg) x 1 * Will start maintenance dose of vancomycin 1500 mg (~15 mg/kg) iv q 12 hrs to achieve an estimated trough ~15-20 mcg/ml (for pneumonia) * Estimated kinetics: t1/2~10 hrs, ke~0.07 hr-1, CrCl ~82 ml/min * Will plan to obtain a trough if vancomycin is to be continued >48 hrs Pharmacy will continue to follow and will adjust dose/frequency as necessary. Thank you.
[2019-08-09 11:17] LABS: Influenza A virus by PCR Neg for Influ A (Neg); Influenza B virus by PCR Neg for Influ B (Neg)
[2019-08-09] MEDS ORDERED: IOVERSOL 100ml IV PRN (12:39)
--- NOTE | 2019-08-09 13:23 | CT Scan Report ---
CT abd pelvis oral and IV con CLINICAL HISTORY: 63 years-old Male presenting with retroperitoneal bleed, sarcoma. TECHNIQUE: Multidetector CT of the abdomen and pelvis was performed after the administration of oral and intravenous contrast. IV contrast: 95 mL of Optiray 320. One or more dose lowering techniques wer e used consistent with the principles of ALARA (as low as reasonably achievable), including automatic exposure control, mA or kV adjustment to individual patient size, and/or use of iterative reconstruc tion. COMPARISON: 05/13/2019. CT DOSE (mGy.cm): The estimated cumulative dose is 1069.92 mGycm. FINDINGS: Engine Dynamometer Tester topogram: Unremarkable. Lung bases: Tip of a central venous catheter terminates at the superior cavoatrial junction. Normal h eart size. Trace right and small left pleural effusions. Extensive atelectasis in the left lower lobe . Minimal atelectasis in the right lower lobe. Liver: Mass effect on the undersurface of the liver primarily affecting the left hepatic lobe and cau date. While it is difficult to exclude parenchymal invasion, there is no effective evidence of direct parenchymal invasion. Few hypodense lesions scattered throughout the liver as on prior exam, likely hepatic cysts. Patent hepatic vasculature allowing for mass effect. Biliary: Mild diffuse intrahepatic biliary duct dilatation. There is also peribiliary and periportal edema. Gallbladder surgically absent. Pancreas: Distorted pancreatic parenchyma secondary to the large retroperitoneal masses. Spleen: Normal. Adrenal glands: Normal right adrenal gland. The left adrenal gland appears to be involved with the re troperitoneal masses. Kidneys and ureters: Few small cysts noted in the renal parenchyma. Excreted contrast in the urinary collecting systems limits evaluation for nephrolithiasis. No hydronephrosis. Ureters nondistended. Bladder: Incompletely evaluated secondary to underdistention. Pelvic organs: Prostate and seminal vesicles normal. Bowel: Normal appendix. No bowel obstruction. Anteriorly displaced duodenum secondary to retrograde d uodenal masses. Peritoneal cavity: Nonspecific presacral edema. Small free fluid in the abdomen and pelvis. No free i ntraperitoneal gas. Significant interval increase in size of several of the components of the multilo bular multifocal retroperitoneal masses. For and stent, there is significantly greater mass effect on the undersurface of the liver and increased size of the portal caval component as well as the lesser sac or peripancreatic component. The prior dominant left inferior component is slightly decreased in size. Lymph nodes: Multiple enlarged periaortic lymph nodes, which are less well visualized on the current exam as these may be compressed or consolidated with retroperitoneal masses. Vasculature: Atherosclerosis of the normal caliber abdominal aorta. IVC patent. Abdominal wall: Mild body wall edema and Musculoskeletal: Degenerative changes of the spine. Mild vertebral body height loss of L3 as on prior exam. Osseous fusion across the posterior elements in the lower lumbar spine as on prior exam. IMPRESSION: 1. Overall increase in size of the multilobular multifocal retroperitoneal masses. The prior dominan t component has decreased in size though the vast majority of the additional components have increase d in size. 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 2. Retroperitoneal lymphadenopathy not demonstrably discrete from the retroperitoneal masses on the current exam. 3. Left adrenal metastatic involvement as on prior. 4. No evidence of a retroperitoneal hematoma. 5. Small volume of abdominopelvic ascites. Electronically signed by: Alex Bolanos M.D. 08/09/2019 1:21 PM
[2019-08-09] MEDS: CEFEPIME 2,000 MG in SYRINGE 7.5 ML IV SCH ×2 (15:16→22:01)
[2019-08-09 15:49] LABS: Ferritin 3226.8 ng/ml (8-388)
[2019-08-09] MEDS: LORazepam 1 MG TAB PO PRN ×2 (15:51→23:26)
[2019-08-09] MEDS: FAMOTIDINE 20 MG in SYRINGE 3 ML IV SCH (18:45)
[2019-08-09 19:33] LABS: Basophils # (auto) 0.03 K/uL (0-0.2); Basophils % (auto) 0.4 %; Eosinophils # (auto) 0.07 K/uL (0-0.5); Eosinophils % (auto) 0.8 %; Hematocrit (blood only) 26.5 % (42-52); Hemoglobin 8.4 g/dL (14.0-18.0); Immature Granulocytes # (auto) 0.06 K/uL (0.00-0.02); Immature Granulocytes % (auto) 0.7 %; Lymphocytes # (auto) 0.46 K/uL (1.2-3.4); Lymphocytes % (auto) 5.5 %; Mean Corpuscular Hemoglobin 27.6 pg (25-34); Mean Corpuscular Hgb Conc 31.7 g/dL (32-36); Mean Corpuscular Volume 87.2 fL (80-100); Mean Platelet Volume 10.2 fL (7.4-10.4); Monocytes # (auto) 0.37 K/uL (0.11-0.59); Monocytes % (auto) 4.4 %; Neutrophils # (auto) 7.36 K/uL (1.4-6.5); Neutrophils % (auto) 88.2 %; Platelet Count 116 K/uL (130-400); RDW Coefficient of Variation 17.2 % (11.5-14.5); RDW Standard Deviation 54.4 fL (36.4-46.3); Red Blood Count 3.04 M/uL (4.7-6.1); White Blood Count 8.35 K/uL (4.8-10.8)
[2019-08-09] MEDS: VANCOMYCIN HCL 1,500 MG in SODIUM CHLORIDE 0.9% 500 ML IV SCH (22:01)
[2019-08-10] MEDS: FAMOTIDINE 20 MG in SYRINGE 3 ML IV SCH ×2 (03:57→16:53)
[2019-08-10] MEDS: HYDROmorphone INJ 1 MG/ML SYRINGE IV PRN ×6 (03:58→23:18)
[2019-08-10] MEDS: CEFEPIME 2,000 MG in SYRINGE 7.5 ML IV SCH ×3 (06:11→23:18)
[2019-08-10 07:16] LABS: Hematocrit (blood only) 24.7 % (42-52); Hemoglobin 7.7 g/dL (14.0-18.0); Mean Corpuscular Hemoglobin 28.1 pg (25-34); Mean Corpuscular Hgb Conc 31.2 g/dL (32-36); Mean Corpuscular Volume 90.1 fL (80-100); Mean Platelet Volume 10.7 fL (7.4-10.4); Platelet Count 104 K/uL (130-400); RDW Coefficient of Variation 17.5 % (11.5-14.5); RDW Standard Deviation 57.6 fL (36.4-46.3); Red Blood Count 2.74 M/uL (4.7-6.1); White Blood Count 6.61 K/uL (4.8-10.8)
[2019-08-10] MEDS: DOCUSATE SODIUM 100 MG CAP PO SCH ×2 (07:31→19:40)
[2019-08-10] MEDS: LACTULOSE SYRUP 20 GM/30 ML UDC PO SCH ×3 (07:31→19:33)
[2019-08-10 07:53] LABS: Albumin Level 2.3 gm/dl (3.4-5.0); BUN Creatinine Ratio 16.3 (10-20); Creatinine Clr Calc Pharmacy 81.9 ml/min; Est GFR (African American) 79.7; Est GFR (Non-African American) 68.8; Potassium 3.8 mmol/L (3.5-5.1)
[2019-08-10 07:56] LABS: Albumin Globulin Ratio 0.8 (0.9-2); Bilirubin,Total 0.7 mg/dl (0.2-1); Total Protein 5.3 gm/dl (6.4-8.2)
[2019-08-10] MEDS: VANCOMYCIN HCL 1,500 MG in SODIUM CHLORIDE 0.9% 500 ML IV SCH (10:08)
--- NOTE | 2019-08-10 10:20 | Cardiology Consultation ---
Date of Consultation August 10, 2019 Assessment & Plan (1) Elevated troponin: His troponin this admission is elevated slightly in a stable pattern, not indicative of an acute myocardial infarction. The cause of his troponin elevation could be multifactorial including his anemia, his tachycardia, his recent chemotherapy or he could have coronary artery disease. He does not have a history of symptoms related to his coronary disease but under the stress he is currently under if he has underlying coronary disease this could cause a slight enzyme abnormality. The pattern however is suggestive of something ongoing such as his underlying illness or his chemotherapy not of an acute coronary event. I do not think I would consider evaluation (catheterization) at this time, we could consider noninvasive testing but if we were not going to move onto catheterization that I would not do that either. (2) Abnormal echocardiogram: His echocardiogram does show a slight reduction in his ejection fraction compared to one in April of this year in the office. He also has some wall motion abnormalities. This could represent global injury from either his current illness, chemotherapy or it could represent demand ischemia in the presence of underlying coronary artery disease. I would treat this conservatively. His blood pressure is not elevated but perhaps a low-dose beta- indy would be reasonable in view of his hypertension. Additionally I think aspirin would be beneficial if he can tolerate it. I would also consider statin therapy, however I will leave that up to the discretion of the primary service given his cancer and possible liver involvement. I have not ordered these medications, but if the primary service feels that he can tolerate them adding an aspirin, beta-indy and consideration of a statin would be in order. History of Present Illness Reason for Consultation: Abnormal cardiac enzymes and echocardiography Attending Physician: Claudia Hahn MD History of Present Illness This is a 63-year-old gentleman who has a history of pancreatic cancer for which he has had chemotherapy although evidently that has not been very effective. He was admitted after emergency room visit on August 08, 2019 for abdominal discomfort. He is also been having extreme fatigue and apparently after his most recent chemotherapy has been feeling very weak and fatigued. He was not having any chest discomfort, but despite that he had troponin measurements done which were slightly elevated. He was therefore admitted. Additionally a CT of the chest was done to exclude PE. At the time of my evaluation he is feeling fatigued, he is not having any chest discomfort and denies prior discomfort. Review of his records indicate that he had an episode of syncope evaluated in the emergency room on May 13, 2019 but he was only evaluated in the emergency room and discharged. He evidently has not had further episodes. He specifically denies any exertional chest discomfort, he has been feeling well so it is difficult to assess his level of exertion. Allergies Allergy/AdvReac Type Severity Reaction Status Date / Time No Known Allergies Allergy Verified 08/08/19 13:10 Home Medications Home Medications Medication Instructions Recorded Confirmed Type citalopram 20 mg PO QAM 08/08/19 08/08/19 History hydromorphone 4 mg PO Q4H PRN 08/08/19 08/08/19 History lactulose 30 ml PO TID 08/08/19 08/08/19 History lorazepam 1 mg PO BID PRN 08/08/19 08/08/19 History ondansetron HCl 8 mg PO TID PRN 08/08/19 08/08/19 History Patient History Medical History Anemia Anxiety Valeria Neff virus infection Gout Hypertension Obesity Sarcoma Temporary low platelet count Surgical History History of cholecystectomy History of colonoscopy History of lumbar fusion History of tonsillectomy and adenoidectomy History of tooth extraction wisdom teeth Social History Preferred Language: Senegalese Communication Ability: Effective Rn Iv Therapy Required: No Beliefs That Will Affect Care: None Current Living Situation: Spouse Current Living Situation Comment: Home Other Information That Helps Us Care for You: No Feels Safe at Home: Yes Safety Concerns: Feels Safe At This Time Smoking Status: Never smoker Second Hand Exposure: No ; Hx Alcohol Use: No Hx Substance Use: No Review of Systems Review of Systems: All systems reviewed & are unremarkable except as noted in HPI & below Physical Exam Physical Exam: Constitutional: Alert, cooperative and in no distress. He appears weak. HEENT: Unremarkable Neck: No jugular venous distention, carotid pulses are normal and equal b ilaterally without bruits. Pulmonary: Clear to auscultation bilaterally. Cardiac: Regular rhythm with no murmur, gallop or rub. Abdomen: Soft, nontender with normal bowel sounds. Extremities: No edema. Distal pulses intact. Neurologic: No focal findings. Gait is steady. Skin: No rash, ecchymoses or petechiae. Results & Data Vital Signs (Past 12 Hours) Vital Signs Temp Pulse Pulse Pulse Resp BP BP 08/10/19 08:00 36.3 C L 99 H 20 113/75 08/10/19 04:26 36.8 C 97 H 18 113/77 08/10/19 00:00 101 H 08/09/19 23:56 36.6 C 97 H 20 113/75 Pulse Ox 08/10/19 08:00 97 08/10/19 04:26 95 08/10/19 00:00 08/09/19 23:56 95 Laboratory Results Cardiac Enzymes 08/10/19 Range/Units 06:21 AST 48 H (15-37) U/L CBC 08/09/19 08/10/19 Range/Units 19:05 06:21 WBC 8.35 6.61 (4.8-10.8) K/uL RBC 3.04 L 2.74 L (4.7-6.1) M/uL Hgb 8.4 L 7.7 L (14.0-18.0) g/dL Hct 26.5 L 24.7 L (42-52) % Plt Count 116 L 104 L (130-400) K/uL Neut # (Auto) 7.36 H (1.4-6.5) K/uL Lymph # (Auto) 0.46 L (1.2-3.4) K/uL [place] # (Auto) 0.37 (0.11-0.59) K/uL Eos # (Auto) 0.07 (0-0.5) K/uL Baso # (Auto) 0.03 (0-0.2) K/uL Comprehensive Metabolic Panel 08/10/19 Range/Units 06:21 Sodium 141 (136-145) mmol/L Potassium 3.8 (3.5-5.1) mmol/L Chloride 109 H (98-107) mmol/L Carbon Dioxide 27 (21-32) mmol/L BUN 18 (7-18) mg/dl Creatinine 1.13 (0.6-1.4) mg/dl Glucose 103 H (70-99) mg/dl Calcium 8.0 L (8.5-10.1) mg/dl AST 48 H (15-37) U/L ALT 11 L (12-78) U/L Alkaline Phosphatase 73 (45-117) U/L Total Protein 5.3 L (6.4-8.2) gm/dl Albumin 2.3 L (3.4-5.0) gm/dl Intake and Output 08/09/19 08/10/19 08/10/19 22:59 06:59 14:59 Intake Total 266.667 / 1680.000 770 / 1680.000 Output Total Balance 266.667 / 1679.000 769 / 1679.000 Intake: IV 266.667 / 1080.000 530 / 1080.000 Vancomycin HCl 1,500 mg In Nss 266.667 / 1080.000 530 / 1080.000 500 ml @ 200 mls/hr IV Q12H MAL Rx#:[id number] Oral 240 / 290 Output: # Bowel Movements Other: Weight 101 kg 99.9 kg Diagnostic Findings His electrocardiogram on admission August 08, 2019 at 1308 showed sinus tachycardia at 113 bpm with nonspecific anterior and inferior ST-T abnormalities, in comparison his electrocardiogram on August 03, 2019 showed sinus rhythm at 89 bpm and was normal. A subsequent electrocardiogram August 09, 2019 at 1453 is normal. An echocardiogram done August 09, 2019 shows normal left ventricular size with concentric left ventricular hypertrophy and ejection fraction possibly slightly reduced at 50 to 55% which what is described as moderate inferior and septal hypokinesis. He has not had another study in the hospital for comparison however he did have one done in our office on May 02, 2019 where he had hyperdynamic left ventricular function as well as mild left ventricular hypertrophy. Ejection fraction was felt to be 70%. Telemetry: Sinus rhythm and sinus tachycardia, rates 90s to low 100s. PG Care Time/CCT Total # of Minutes Spent Total Time Spent with Patient: Total time spent is greater than 50% in coordination of care (as documented) at patient's floor/unit and/or counseling patient:
--- NOTE | 2019-08-10 11:16 | Hospitalist Progress Note ---
Date of Service August 10, 2019 Assessment & Plan (1) Acute metabolic encephalopathy: Presented with hallucinations, profound fatigue in setting of recent chemotherapy with Eribulin on 08/04. Could be secondary to severe anemia, hypoxia, infection (suspected PNA as below), opioid pain medication use, constipation Improved mental status now that constipation resolved, and anemia improved with PRBC transfusion. -Follow clinically (2) Weakness: Secondary to chemotherapy effect, severe anemia, possible PNA -treating with transfusional support, antibiotics, is improving - PT/OT consults pending (3) Constipation: Likely opioid induced Now with multiple brown bowel movements and this is resolved -Continue lactulose and colace. - No obstruction seen on KUB or CT abd/pel, but duodenum is being pushed out due to invasion of retroperitoneal space - pancreatic mass and bowel loops surrounding mass causing constipation. 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 4 mg Q4H scheduled vs prn at home and likely contributed to the patient's constipation -continue pain control, Pepcid, bowel regimen -Continue IV and p.o. Dilaudid as needed (5) Elevated troponin: -Elevated at 0.061/0.06/0.055 Denies chest pain ever -EKG with nonspecific TW changes anterior leads, prolonged QTc 622 as per report on ECG but review consultant review reports that this was a false reading--> repeat ECG then with resolution of TWIs and QTc now normal -Noted mild pericardial effusion on imaging -ECHO with +WMA moderate inferior and septal hypokinesis, preserved LVEF, new from previous ECHO 04/2019 -not a good candidate to undergo cardiac cath and doubt would help him at all -consult Cardiology for further opinion is appreciated-recommends aspirin, statin, beta-indy if can tolerate considering other comorbidities, but will not further investigate with cardiac cath given comorbidities as well -Continue telemetry monitoring More likely myocardial demand ischemia in setting of severe anemia, suspected PNA -We will hold off on starting aspirin at this time due to thrombocytopenia and anemia -Hold off on starting statin as would likely not have much benefit given his overall poor prognosis with his sarcoma -We will consider adding on low-dose beta-indy (6) Hypoxia: -Initially was hypoxic at 86% on room air, continue on 2L via NC, currently sats in the mid 90s - Does not wear o2 at home - CTPE negative for PE, shows mild Left pleural effusion and possible LLL infiltrate vs atelectasis -Subsequent CT abd/pel shows extensive atelectasis L>>R in lower lobes -Likely secondary to atelectasis from splinting due to abdominal pain -Also suspected PNA and given that he is immunosupressed, started treatment with Cefepime and Vanco -Now that MRSA swab is negative-DC vancomycin -encouraged incentive spirometry -continue O2 as needed to keep POx>94% (7) Anemia: Secondary likely to chemotherapy Hgb now up somewhat to 7.7 after receiving 4 units of blood in the last 2 days- repeat CBC midday was up further to 7.9 No evidence of bleeding at all No bleeding in retroperitoneal space on imaging Hemoccult stool negative 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 Likely secondary to recent chemotherapy No evidence of hemolysis-LDH is chronically elevated likely secondary to his cancer, d-dimer is massively elevated secondary to cancer as well, total bilirubin is normal, haptoglobin is pending -follow serial CBC and transfuse if hemoglobin drops again tonight (8) Thrombocytopenia: Plts remain mildly low at 104, likely secondary to chemotherapy -follow CBC (9) Abnormal echocardiogram: with +WMAs as above -Appreciate cardiology recommendations (10) Pneumonia: Suspected LLL on CT Chest, with profound fatigue, no leukocytosis or fever, but is immunosupressed so will treat -started Cefepime and Vanco but now discontinued vancomycin as above (11) Prolonged QT interval: QTc was 622 on admission, however review as per cardiology states that that was an over read/missed read by the computer-QTC is actually more in the 400 range Repeat ECG QTC normal Magnesium normal -dc Zofran, holding Celexa for now -follow on tele (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 Mckenzie with [facility] ins - currently on Eribulin chemotherapy per oncology after failing adriamycin, doxyrubicin - Consult oncology, Dr. Dunne, appreciated -pain control, bowel regimen -Dr. Dunne is in contact with the oncologist at [facility] (13) Fatigue: secondary to chemotherapy vs infection, anemia as above Somewhat improved -UA normal -transfused, continue abx for PNA PT/OT consults placed (14) Elevated transaminase level: mild elevation in AST which is down from previous (15) GERD (gastroesophageal reflux disease): Improved -Continue Pepcid 20mg IV bid for heartburn (16) DVT prophylaxis: -Hold Lovenox for anemia and thrombocytopenia, ambulatory, scd CODE STATUS-DNR Disposal: Patient from home, PT/OT, case management to assist with discharge management Subjective Patient reports he had 2 brown bowel movements today, no blood or melena. His abdominal pain is controlled with IV Dilaudid. Denies nausea or vomiting, is eating small amounts. Feels tired as he just received IV Dilaudid. Denies chest pain or shortness of breath, no cough. Remains afebrile. No hematuria, no epistaxis, no extensive bruising or hematomas. I discussed the case again with oncology and cardiology today. Telemetry with normal sinus rhythm with rates in the 90s to 100s Review of Systems Review of Systems: All systems reviewed & are unremarkable except as noted in HPI & below Physical Exam Constitutional: WD/WN, vitals as above (with alopecia) Eyes: + anicteric sclerae ENMT: external ear and nose normal, oropharynx normal Neck: trachea midline, no thyromegaly Respiratory: normal respiratory effort (with NC in place); no labored breathing, does not use accessory muscles and not tachypneic Auscultation: + crackles (at bases bilat); no rhonchi and no wheezes Cardiovascular: RRR, no murmur, no edema Chest (Breasts): Chest: normal inspection of chest Gastrointestinal (Abdomen): Inspection/Auscultation: abdomen normal to inspection, + abdomen distended (mild) and normal bowel sounds; Martin-Castillo sign absent Percussion/Palpation: + abdomen tender (Minimally tender across entire upper abdomen), abdomen soft and + hepatomegaly; no guarding and abdomen not rigid Musculoskeletal: Extremities: extremities normal to inspection; no cyanosis and no clubbing Skin: no rashes, warm and dry no ecchymosis (No hematomas or ecchymosis with whole body skin check) Neurologic: moves all extremities and awake; no focal motor deficits Psychiatric: Orientation: alert (But getting drowsy) Speech: normal rate/rhythm/volume of speech Affect: + flat affect Lymphatic: + cervical lymphadenopathy (on right anterior cervical); no lymphedema Results & Data Vital Signs (Past 12 Hours) Vital Signs Temp Pulse Pulse Pulse Resp BP BP 08/10/19 08:00 36.3 C L 99 H 20 113/75 08/10/19 04:26 36.8 C 97 H 18 113/77 08/10/19 00:00 101 H 08/09/19 23:56 36.6 C 97 H 20 113/75 Pulse Ox 08/10/19 08:00 97 08/10/19 04:26 95 08/10/19 00:00 08/09/19 23:56 95 Laboratory Results 08/10/19 08/10/19 08/10/19 Range/Units 12:03 12:03 12:03 WBC (4.8-10.8) K/uL RBC (4.7-6.1) M/uL Hgb (14.0-18.0) g/dL Hct (42-52) % MCV (80-100) fL MCH (25-34) pg MCHC (32-36) g/dL RDW Std Deviation (36.4-46.3) fL RDW Coeff of Danelle (11.5-14.5) % Plt Count (130-400) K/uL MPV (7.4-10.4) fL Platelet Estimate (Normal) Peripher Smr Path Cons Haptoglobin Pending PT (9.0-12.0) Seconds INR (0.9-1.1) APTT (21.0-31.0) Seconds PTT Ratio Fibrinogen (184-400) mg/dl Fibrin Degrad Products >40 H (<10) mcg/ml D-Dimer (0-500) ug/L FEU Sodium (136-145) mmol/L Potassium (3.5-5.1) mmol/L Chloride (98-107) mmol/L Carbon Dioxide (21-32) mmol/L Anion Gap (3-11) BUN (7-18) mg/dl Creatinine (0.6-1.4) mg/dl Est Cr Clr Drug Dosing ml/min Est GFR ( Amer) Est GFR (Non-Af Amer) BUN/Creatinine Ratio (10-20) Glucose (70-99) mg/dl Calcium (8.5-10.1) mg/dl Total Bilirubin (0.2-1) mg/dl AST (15-37) U/L ALT (12-78) U/L Alkaline Phosphatase (45-117) U/L Lactate Dehydrogenase 518 H (87-241) U/L Total Protein (6.4-8.2) gm/dl Albumin (3.4-5.0) gm/dl Globulin (2.5-4.0) gm/dl Albumin/Globulin Ratio (0.9-2) Stool Occult Bld Scrn (Negative) Crossmatch 08/10/19 08/10/19 08/10/19 Range/Units 12:03 12:03 06:21 WBC 5.82 (4.8-10.8) K/uL RBC 2.84 L (4.7-6.1) M/uL Hgb 7.9 L (14.0-18.0) g/dL Hct 25.2 L (42-52) % MCV 88.7 (80-100) fL MCH 27.8 (25-34) pg MCHC 31.3 L (32-36) g/dL RDW Std Deviation 56.1 H (36.4-46.3) fL RDW Coeff of Danelle 17.2 H (11.5-14.5) % Plt Count 98 L (130-400) K/uL MPV 9.9 (7.4-10.4) fL Platelet Estimate Decreased L (Normal) Peripher Smr Path Cons Haptoglobin PT 11.4 (9.0-12.0) Seconds INR 1.1 (0.9-1.1) APTT 28.3 (21.0-31.0) Seconds PTT Ratio 1.0 Fibrinogen 324 (184-400) mg/dl Fibrin Degrad Products (<10) mcg/ml D-Dimer > 86859 H* (0-500) ug/L FEU Sodium 141 (136-145) mmol/L Potassium 3.8 (3.5-5.1) mmol/L Chloride 109 H (98-107) mmol/L Carbon Dioxide 27 (21-32) mmol/L Anion Gap 5.0 (3-11) BUN 18 (7-18) mg/dl Creatinine 1.13 (0.6-1.4) mg/dl Est Cr Clr Drug Dosing 81.9 ml/min Est GFR ( Amer) 79.7 Est GFR (Non-Af Amer) 68.8 BUN/Creatinine Ratio 16.3 (10-20) Glucose 103 H (70-99) mg/dl Calcium 8.0 L (8.5-10.1) mg/dl Total Bilirubin 0.7 (0.2-1) mg/dl AST 48 H (15-37) U/L ALT 11 L (12-78) U/L Alkaline Phosphatase 73 (45-117) U/L Lactate Dehydrogenase (87-241) U/L Total Protein 5.3 L (6.4-8.2) gm/dl Albumin 2.3 L (3.4-5.0) gm/dl Globulin 3.0 (2.5-4.0) gm/dl Albumin/Globulin Ratio 0.8 L (0.9-2) Stool Occult Bld Scrn (Negative) Crossmatch 08/10/19 08/09/19 08/08/19 Range/Units 06:21 20:00 15:27 WBC 6.61 (4.8-10.8) K/uL RBC 2.74 L (4.7-6.1) M/uL Hgb 7.7 L (14.0-18.0) g/dL Hct 24.7 L (42-52) % MCV 90.1 (80-100) fL MCH 28.1 (25-34) pg MCHC 31.2 L (32-36) g/dL RDW Std Deviation 57.6 H (36.4-46.3) fL RDW Coeff of Danelle 17.5 H (11.5-14.5) % Plt Count 104 L (130-400) K/uL MPV 10.7 H (7.4-10.4) fL Platelet Estimate (Normal) Peripher Smr Path Cons Haptoglobin PT (9.0-12.0) Seconds INR (0.9-1.1) APTT (21.0-31.0) Seconds PTT Ratio Fibrinogen (184-400) mg/dl Fibrin Degrad Products (<10) mcg/ml D-Dimer (0-500) ug/L FEU Sodium (136-145) mmol/L Potassium (3.5-5.1) mmol/L Chloride (98-107) mmol/L Carbon Dioxide (21-32) mmol/L Anion Gap (3-11) BUN (7-18) mg/dl Creatinine (0.6-1.4) mg/dl Est Cr Clr Drug Dosing ml/min Est GFR ( Amer) Est GFR (Non-Af Amer) BUN/Creatinine Ratio (10-20) Glucose (70-99) mg/dl Calcium (8.5-10.1) mg/dl Total Bilirubin (0.2-1) mg/dl AST (15-37) U/L ALT (12-78) U/L Alkaline Phosphatase (45-117) U/L Lactate Dehydrogenase (87-241) U/L Total Protein (6.4-8.2) gm/dl Albumin (3.4-5.0) gm/dl Globulin (2.5-4.0) gm/dl Albumin/Globulin Ratio (0.9-2) Stool Occult Bld Scrn Negative (Negative) Crossmatch See Detail PG Care Time/CCT Total # of Minutes Spent Total Time Spent with Patient: Total time spent is greater than 50% in coordination of care (as documented) at patient's floor/unit and/or counseling patient: (1) Anemia Anemia type: unspecified type Qualified Code(s): D64.9 - Anemia, unspecified (2) Abdominal pain Abdominal location: unspecified location Qualified Code(s): R10.9 - Unspecified abdominal pain
[2019-08-10 12:26] LABS: Hematocrit (blood only) 25.2 % (42-52); Hemoglobin 7.9 g/dL (14.0-18.0); Mean Corpuscular Hemoglobin 27.8 pg (25-34); Mean Corpuscular Hgb Conc 31.3 g/dL (32-36); Mean Corpuscular Volume 88.7 fL (80-100); RDW Coefficient of Variation 17.2 % (11.5-14.5); RDW Standard Deviation 56.1 fL (36.4-46.3); Red Blood Count 2.84 M/uL (4.7-6.1); White Blood Count 5.82 K/uL (4.8-10.8)
[2019-08-10 12:47] LABS: Fibrinogen 324 mg/dl (184-400); INR 1.1 (0.9-1.1); Partial Thromboplastin Time 28.3 Seconds (21.0-31.0); Prothrombin Time 11.4 Seconds (9.0-12.0)
[2019-08-10 12:52] LABS: Mean Platelet Volume 9.9 fL (7.4-10.4); Platelet Count 98 K/uL (130-400)
[2019-08-10 12:54] LABS: Platelet Estimate Decreased (Normal)
[2019-08-10 13:15] LABS: D Dimer > 35200 ug/L FEU (0-500)
--- NOTE | 2019-08-10 16:30 | Oncology Consultation ---
Date of Consultation August 09, 2019 Assessment & Plan (1) Anemia: He was anemic prior to admission, so this drop is less dramatic than it would first appear. Still, I agree with continued transfusion. It is hard to account for his limited response. He does not appear to be bleeding anywhere, though we should monitor him closely for evidence of this. His labs and exam are not consistent with an acute transfusion reaction. He may have a component of DIC. Also, he has been getting IV fluids and was eating poorly as an outpatient. It is possible he was hemoconcentrated when he came in, accounting for some of the lack of response. Regardless, we will need to see how he responds to the n ext two units of blood. Present on Admission?: Yes (2) Prolonged QT interval: He had a high-normal QTc prior to his first dose of eribulin. It is known to prolong the QTc, so I am concerned about his QTc over 600. That being said, he is on other medications that can prolong it, like Zofran and citalopram. These have been held, which is appropriate. A repeat EKG showed a more normal QTc. This change might not preclude an attempted rechallenge, provided we hold any medications that might also prolong the QTc. We can discuss this at a later date. I will also review the situation with his primary oncologist at [place]. 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 Generally, we see disease stabilization rather than actual tumor shrinkage with chemotherapy in this situation. I think it is reasonable to attempt to continue treating him, but I will review the situation with his primary oncologist as well to consider alternatives if we cannot use the [place]. Present on Admission?: Yes History of Present Illness Reason for Consultation: Metastatic sarcoma Anemia Attending Physician: Claudia Hahn MD History of Present Illness Mr. 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 I initially met him in April, though he opted for treatment [facility]. He received 4 cycles of doxorubicin but had progressive disease and so recently returned to this area for second line treatment with eribulin. He received his first dose on 08/04/19. He presented to the ER on 08/08 with multiple complaints, including abdominal pain, constipation, confusion, and delirium. He was moderately hypoxic on room air, though he improved with NC oxygen. He also had a very slight increase in his troponins. He had imaging including a CTA that was negative for PE, though it did not reveal another clear explanation for his hypoxia. He had a hemoglobin of 6.4 on admission, though his previous baseline was only in the 8s. He was transfused 2 units of PRBCs on admission but did not see a significant improvement in his counts. As a result, he had a CT A/P that revealed no evidence of hemorrhage or large hematomas. His stool has also been brown and a FOBT was negative. He was lying comfortably in bed when I saw him. He felt tired and was in pain, but he was not confused or agitated. He denied any stool changes, bleeding anywhere, new or worsening pain, swelling, or bruising. He also denied any headache, vision changes, cough, fevers, chest pain, or shortness of breath. He does remain hypoxic and is requiring supplemental O2. Allergies Allergy/AdvReac Type Severity Reaction Status Date / Time No Known Allergies Allergy Verified 08/08/19 13:10 Home Medications Home Medications Medication Instructions Recorded Confirmed Type citalopram 20 mg PO QAM 08/08/19 08/08/19 History hydromorphone 4 mg PO Q4H PRN 08/08/19 08/08/19 History lactulose 30 ml PO TID 08/08/19 08/08/19 History lorazepam 1 mg PO BID PRN 08/08/19 08/08/19 History ondansetron HCl 8 mg PO TID PRN 08/08/19 08/08/19 History Patient History Medical History Anemia Anxiety Valeria Neff virus infection Gout Hypertension Obesity Sarcoma Temporary low platelet count Surgical History History of cholecystectomy History of colonoscopy History of lumbar fusion History of tonsillectomy and adenoidectomy History of tooth extraction wisdom teeth Social History Preferred Language: Persian Communication Ability: Effective Messenger Floorperson Required: No Beliefs That Will Affect Care: None Current Living Situation: Spouse Current Living Situation Comment: Home Other Information That Helps Us Care for You: No Feels Safe at Home: Yes Safety Concerns: Feels Safe At This Time Smoking Status: Never smoker Second Hand Exposure: No ; Hx Alcohol Use: No Hx Substance Use: No Review of Systems Review of Systems: All systems reviewed & are unremarkable except as noted in HPI & below Physical Exam Constitutional: + ill appearing (chronically) and + obese; no acute distress ENMT: external ear and nose normal, oropharynx normal Respiratory: normal respiratory effort, lungs clear to auscultation Cardiovascular: RRR, no murmur, no edema Gastrointestinal (Abdomen): Inspection/Auscultation: + abdomen distended and normal bowel sounds Percussion/Palpation: + abdomen tender (diffusely) and abdomen soft Psychiatric: A+Ox3, euthymic affect Results & Data Vital Signs (Past 12 Hours) Vital Signs Temp Pulse Resp BP Pulse Ox 08/10/19 16:21 36.5 C 95 H 16 128/78 98 08/10/19 12:00 36.7 C 99 H 22 119/77 96 08/10/19 08:00 36.3 C L 99 H 20 113/75 97 Laboratory Results Laboratory Tests 08/02/19 08/08/19 08/08/19 15:24 13:24 22:15 Hgb 8.6 L 6.6 L* Plt Count 191 99 L Creatinine Albumin 08/09/19 08/09/19 05:40 05:40 Hgb 6.7 L* Plt Count 104 L Creatinine 1.13 Albumin 2.3 L Diagnostic Findings CTA Chest, 08/08/19: IMPRESSION: 1. No evidence for pulmonary embolus with limitations as described above. 2. Trace pericardial effusion and a trace left pleural effusion. 3. Small amount of upper abdominal ascites and increase in size in the necrotic peripancreatic lymph nodes. This is consistent with metastatic disease. 4. Increase in size in a 7 mm nodule within the left lung apex. This is also concerning for metastatic disease. 5. Patchy airspace opacities within the base of the left lower lobe. This favors atelectasis. A pneumonia could also have a similar appearance. CT A/P, 08/09/19: IMPRESSION: 1. Overall increase in size of the multilobular multifocal retroperitoneal masses. The prior dominant component has decreased in size though the vast majority of the additional components have increased in size. 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 2. Retroperitoneal lymphadenopathy not demonstrably discrete from the retroperitoneal masses on the current exam. 3. Left adrenal metastatic involvement as on prior. 4. No evidence of a retroperitoneal hematoma. 5. Small volume of abdominopelvic ascites. (1) Anemia Anemia type: unspecified type Qualified Code(s): D64.9 - Anemia, unspecified
[2019-08-10] MEDS: LORazepam 1 MG TAB PO PRN (19:31)
[2019-08-10 20:48] LABS: Hematocrit (blood only) 24.9 % (42-52); Hemoglobin 7.8 g/dL (14.0-18.0); Mean Corpuscular Hemoglobin 27.9 pg (25-34); Mean Corpuscular Volume 88.9 fL (80-100); Mean Platelet Volume 10.5 fL (7.4-10.4); Platelet Count 111 K/uL (130-400); RDW Coefficient of Variation 17.3 % (11.5-14.5); RDW Standard Deviation 55.9 fL (36.4-46.3); White Blood Count 6.05 K/uL (4.8-10.8)
[2019-08-10 21:02] LABS: Mean Corpuscular Hgb Conc 31.3 g/dL (32-36)
[2019-08-11] MEDS: HYDROmorphone INJ 1 MG/ML SYRINGE IV PRN ×2 (03:58→07:49)
[2019-08-11] MEDS: FAMOTIDINE 20 MG in SYRINGE 3 ML IV SCH ×2 (04:07→16:47)
[2019-08-11] MEDS: CEFEPIME 2,000 MG in SYRINGE 7.5 ML IV SCH ×3 (06:11→20:56)
[2019-08-11] MEDS: DOCUSATE SODIUM 100 MG CAP PO SCH ×2 (07:49→20:59)
[2019-08-11 08:09] LABS: Hematocrit (blood only) 23.6 % (42-52); Hemoglobin 7.4 g/dL (14.0-18.0); Mean Corpuscular Hemoglobin 28.4 pg (25-34); Mean Corpuscular Hgb Conc 31.4 g/dL (32-36); Mean Corpuscular Volume 90.4 fL (80-100); RDW Coefficient of Variation 17.3 % (11.5-14.5); RDW Standard Deviation 57.2 fL (36.4-46.3); Red Blood Count 2.61 M/uL (4.7-6.1); White Blood Count 4.93 K/uL (4.8-10.8)
[2019-08-11 08:36] LABS: Albumin Level 2.2 gm/dl (3.4-5.0); BUN Creatinine Ratio 14.9 (10-20); Creatinine Clr Calc Pharmacy 83.9 ml/min; Est GFR (African American) 79.7; Est GFR (Non-African American) 68.8; Potassium 3.6 mmol/L (3.5-5.1)
[2019-08-11 08:39] LABS: Albumin Globulin Ratio 0.8 (0.9-2); Bilirubin,Total 0.6 mg/dl (0.2-1); Globulin 2.7 gm/dl (2.5-4.0); Phosphorus 3.1 mg/dl (2.5-4.9); Total Protein 4.9 gm/dl (6.4-8.2)
[2019-08-11 08:45] LABS: Mean Platelet Volume 11.1 fL (7.4-10.4); Platelet Count 97 K/uL (130-400); Platelet Estimate Decreased (Normal)
--- NOTE | 2019-08-11 08:59 | Cardiology Progress Note ---
Date of Service August 11, 2019 Assessment & Plan (1) Elevated troponin: His troponin this admission was elevated slightly in a stable pattern, not indicative of an acute myocardial infarction. The cause of his troponin elevation could be multifactorial including his anemia, his tachycardia, his recent chemotherapy or he could have coronary artery disease. He does not have a history of symptoms related to his coronary disease but under the stress he is currently under if he has underlying coronary disease this could cause a slight enzyme abnormality. The pattern however is suggestive of something ongoing such as his underlying illness or his chemotherapy not of an acute coronary event. I do not think I would consider evaluation (catheterization) at this time, we could consider noninvasive testing but since I am reluctant to move onto catheterization I would not do that either. I would however like to repeat his troponin now and see whether it has trended one way or another. (2) Abnormal echocardiogram: His echocardiogram does show a slight reduction in his ejection fraction compared to one in April of this year in the office. He also has some wall motion abnormalities. This could represent global injury from either his current illness, chemotherapy or it could represent demand ischemia in the presence of underlying coronary artery disease. I would treat this conservatively. His blood pressure is not elevated but perhaps a low-dose beta- indy would be reasonable in view of his hypertension. Additionally I think aspirin would be beneficial if he can tolerate it. I would also consider statin therapy, however I will leave that up to the discretion of the primary service given his cancer and possible liver involvement. I have not ordered these medications, but if the primary service feels that he can tolerate them adding an aspirin, beta-indy and consideration of a statin would be in order. (3) Prolonged QT interval: His initial electrocardiogram was read by the computer as a long QT interval, however I believe that was erroneous. His T waves were somewhat flattened on that particular electrocardiogram but I do not believe he had a long QT. I have corrected that interpretation on the formal reading of that electrocardiogram. I would therefore recommend another trial of the chemotherapy if indicated otherwise, and we can pay close attention to the QT interval. Subjective He is feeling relatively well today, no specific cardiovascular complaints. Physical Exam Physical Exam: Constitutional: Alert, cooperative and in no distress. Pulmonary: Clear to auscultation bilaterally. Cardiac: Regular rhythm with no murmur, gallop or rub. Abdomen: Soft, nontender with normal bowel sounds. Extremities: No edema. Skin: No rash, ecchymoses or petechiae. Results & Data Vital Signs (Past 12 Hours) Vital Signs Temp Pulse Resp BP BP Pulse Ox 08/11/19 07:30 36.4 C L 93 H 20 122/82 97 08/11/19 04:04 36.7 C 105 H 20 101/69 95 08/10/19 23:09 36.4 C L 103 H 20 125/79 97 Laboratory Results Abnormal lab results 08/08/19 08/10/19 08/10/19 Range/Units 15:27 12:03 12:03 RBC 2.84 L (4.7-6.1) M/uL Hgb 7.9 L (14.0-18.0) g/dL Hct 25.2 L (42-52) % MCHC 31.3 L (32-36) g/dL RDW Std Deviation 56.1 H (36.4-46.3) fL RDW Coeff of Danelle 17.2 H (11.5-14.5) % Plt Count 98 L (130-400) K/uL MPV (7.4-10.4) fL Platelet Estimate Decreased L (Normal) Fibrin Degrad Products (<10) mcg/ml D-Dimer > 80245 H* (0-500) ug/L FEU Chloride (98-107) mmol/L Glucose (70-99) mg/dl Calcium (8.5-10.1) mg/dl ALT (12-78) U/L Lactate Dehydrogenase (87-241) U/L Total Protein (6.4-8.2) gm/dl Albumin (3.4-5.0) gm/dl Albumin/Globulin Ratio (0.9-2) Crossmatch See Detail 08/10/19 08/10/19 08/10/19 Range/Units 12:03 12:03 20:29 RBC 2.80 L (4.7-6.1) M/uL Hgb 7.8 L (14.0-18.0) g/dL Hct 24.9 L (42-52) % MCHC 31.3 L (32-36) g/dL RDW Std Deviation 55.9 H (36.4-46.3) fL RDW Coeff of Danelle 17.3 H (11.5-14.5) % Plt Count 111 L (130-400) K/uL MPV 10.5 H (7.4-10.4) fL Platelet Estimate (Normal) Fibrin Degrad Products >40 H (<10) mcg/ml D-Dimer (0-500) ug/L FEU Chloride (98-107) mmol/L Glucose (70-99) mg/dl Calcium (8.5-10.1) mg/dl ALT (12-78) U/L Lactate Dehydrogenase 518 H (87-241) U/L Total Protein (6.4-8.2) gm/dl Albumin (3.4-5.0) gm/dl Albumin/Globulin Ratio (0.9-2) Crossmatch 08/11/19 08/11/19 Range/Units 07:41 07:41 RBC 2.61 L (4.7-6.1) M/uL Hgb 7.4 L (14.0-18.0) g/dL Hct 23.6 L (42-52) % MCHC 31.4 L (32-36) g/dL RDW Std Deviation 57.2 H (36.4-46.3) fL RDW Coeff of Danelle 17.3 H (11.5-14.5) % Plt Count 97 L (130-400) K/uL MPV 11.1 H (7.4-10.4) fL Platelet Estimate Decreased L (Normal) Fibrin Degrad Products (<10) mcg/ml D-Dimer (0-500) ug/L FEU Chloride 110 H (98-107) mmol/L Glucose 113 H (70-99) mg/dl Calcium 8.0 L (8.5-10.1) mg/dl ALT 9 L (12-78) U/L Lactate Dehydrogenase (87-241) U/L Total Protein 4.9 L (6.4-8.2) gm/dl Albumin 2.2 L (3.4-5.0) gm/dl Albumin/Globulin Ratio 0.8 L (0.9-2) Crossmatch PG Care Time/CCT Total # of Minutes Spent Total Time Spent with Patient: Total time spent is greater than 50% in coordination of care (as documented) at patient's floor/unit and/or counseling patient:
[2019-08-11] MEDS ORDERED: SODIUM CHLORIDE 0.9% 250 ML IV PRN (09:10)
[2019-08-11] MEDS: CITALOPRAM 20 MG TAB PO SCH (09:40)
[2019-08-11] MEDS: LACTULOSE SYRUP 20 GM/30 ML UDC PO SCH ×3 (10:14→20:58)
[2019-08-11] MEDS: ONDANSETRON INJ 2 MG/ML 2 ML VIAL IV PRN ×2 (10:14→18:31)
[2019-08-11] MEDS: HYDROmorphone HCL 2 MG TAB PO PRN ×3 (12:32→20:56)
--- NOTE | 2019-08-11 16:11 | Hospitalist Progress Note ---
Date of Service August 11, 2019 Assessment & Plan (1) Acute metabolic encephalopathy: Presented with hallucinations, profound fatigue in setting of recent chemotherapy with Eribulin on 08/04. Could be secondary to severe anemia, hypoxia, infection (suspected PNA as below), opioid pain medication use, constipation Encephalopathy now completely resolved with resolution of constipation, and anemia improved with PRBC transfusion, as well as treatment for suspected pneumonia with antibiotics. -Follow clinically (2) Weakness: Secondary to chemotherapy effect, severe anemia, possible PNA -treating with transfusional support, antibiotics, is significantly improved. He ambulated quite well up and down the halls today with physical therapy (3) Constipation: Likely opioid induced Now with multiple brown bowel movements daily-resolved -Continue lactulose and colace at current doses - No obstruction seen on KUB or CT abd/pel, but duodenum is being pushed out due to invasion of retroperitoneal space - pancreatic mass and bowel loops surrounding mass causing constipation. (4) Abdominal pain: -secondary to retroperitoneal tumor, with mass effect on liver, pancreas, perhaps some mild ileus due to opioids No retroperitoneal bleeding seen on CT, no obstruction, moving bowels and passing gas daily - Was taking Dilaudid p.o. 4 mg Q4H scheduled vs prn at home and likely contributed to the patient's constipation -continue pain control, Pepcid, bowel regimen -Continue IV and p.o. Dilaudid as needed and increased frequency of p.o. Dilaudid to every 3 hours-encouraged use of p.o. medicine rather than IV at this point to transition to home (5) Elevated troponin: -Elevated at 0.061/0.06/0.055, repeat troponin now back to normal Denies chest pain ever -EKG with nonspecific TW changes anterior leads, prolonged QTc 622 as per report on ECG but diamond cleaner review reports that this was a false reading--> repeat ECG then with resolution of TWIs and QTc now normal -Noted mild pericardial effusion on imaging -ECHO with +WMA moderate inferior and septal hypokinesis, preserved LVEF, new from previous ECHO 04/2019 -not a good candidate to undergo cardiac cath and doubt would help him at all -consult Cardiology for further opinion is appreciated-recommends aspirin, statin, beta-indy if can tolerate considering other comorbidities, but will not further investigate with cardiac cath given comorbidities as well -Continue telemetry monitoring More likely myocardial demand ischemia in setting of severe anemia, suspected PNA -We will hold off on starting aspirin at this time due to thrombocytopenia and anemia -Hold off on starting statin as would likely not have much benefit given his overall poor prognosis with his sarcoma -We will consider adding on low-dose beta-indy if can tolerate at the time of discharge (6) Hypoxia: -Initially was hypoxic at 86% on room air, was requiring 2 L nasal cannula-now weaned off of oxygen with improved pain control, less splinting, and increased ambulation to resolve atelectasis - CTPE negative for PE, shows mild Left pleural effusion and possible LLL infiltrate vs atelectasis -Subsequent CT abd/pel showed extensive atelectasis L>>R in lower lobes -Likely secondary to atelectasis from splinting due to abdominal pain -Also suspected PNA and given that he is immunosupressed, started treatment with Cefepime and Vanco -Now that MRSA swab is negative-DCd vancomycin -encouraged incentive spirometry -continue O2 as needed to keep POx>94%-none needed at this point (7) Anemia: Secondary likely to chemotherapy Hgb slight drop again today to 7.4 after receiving 4 units of blood this hospitalization No evidence of bleeding at all No bleeding in retroperitoneal space on imaging Hemoccult stool negative 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 Likely secondary to recent chemotherapy No evidence of hemolysis-LDH is chronically elevated likely secondary to his cancer, d-dimer is massively elevated secondary to cancer as well, total bilirubin is normal, haptoglobin is pending -Transfuse 2 more units PRBCs today -Follow CBC in the morning (8) Thrombocytopenia: Plts remain mildly low but fairly stable at 97, likely secondary to chemotherapy -follow CBC (9) Abnormal echocardiogram: with +WMAs as above and small pericardial effusion -Appreciate cardiology recommendations (10) Pneumonia: Suspected LLL on CT Chest, with profound fatigue, no leukocytosis or fever, but is immunosupressed so will treat -started Cefepime and Vanco but now discontinued vancomycin as above -We will convert to oral antibiotics upon discharge to finish out a 7-day course (11) Prolonged QT interval: QTc was falsely read as 622 on admission ECG, however review as per cardiology states that that was an over read/missed read by the computer-QTC is actually more in the 400 range and this has been corrected now on the ECG Repeat ECG QTC normal Magnesium normal -dc Zofran, okay to restart Celexa -follow on tele (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 Mckenzie with [facility] - currently on Eribulin chemotherapy per oncology after failing adriamycin, doxyrubicin - Consult oncology, Dr. Dunne, appreciated -pain control, bowel regimen continues as above -Dr. Dunne is in contact with the oncologist at [facility] and they have come up with a plan for future treatment Overall poor prognosis unfortunately (13) Fatigue: secondary to chemotherapy vs infection, anemia as above, and side effect of opioid drugs Much improved -UA normal -transfused, continue abx for PNA (14) Elevated transaminase level: mild elevation in AST which is down from previous (15) GERD (gastroesophageal reflux disease): Improved -Continue Pepcid 20mg IV bid for heartburn and convert to p.o. at discharge (16) DVT prophylaxis: -Hold Lovenox for anemia and thrombocytopenia, ambulatory, scd CODE STATUS-DNR Dispo: Patient from home, PT/OT recommend return home possible dc to home tomorrow Subjective Feeling much better today, pain in abdomen is fairly well controlled and he continues to pass bowel movements and gas. Denies nausea and is eating some small amounts of food and liquid. Denies chest pain or shortness of breath. He ambulated quite well in the halls today and is now off of oxygen. No blood in the stool or urine, no evidence of bleeding from anywhere else. I discussed the case with his oncologist. Telemetry with normal sinus rhythm with rates in the 90s to 100s Review of Systems Review of Systems: All systems reviewed & are unremarkable except as noted in HPI & below Physical Exam Constitutional: WD/WN, vitals as above (with alopecia) Eyes: + anicteric sclerae Neck: trachea midline, no thyromegaly Respiratory: normal respiratory effort, lungs clear to auscultation no labored breathing Cardiovascular: RRR, no murmur, no edema Chest (Breasts): Chest: normal inspection of chest Gastrointestinal (Abdomen): Inspection/Auscultation: abdomen normal to inspection, + abdomen distended (mild) and normal bowel sounds; Martin-Castillo sign absent Percussion/Palpation: + abdomen tender (Minimally tender across entire upper abdomen), abdomen soft and + hepatomegaly; no guarding and abdomen not rigid Musculoskeletal: Extremities: extremities normal to inspection; no cyanosis and no clubbing Skin: no rashes, warm and dry no ecchymosis (No hematomas or ecchymosis with whole body skin check) Neurologic: moves all extremities and awake; no focal motor deficits Psychiatric: A+Ox3, euthymic affect Speech: normal rate/rhythm/volume of speech Results & Data Vital Signs (Past 12 Hours) Vital Signs Temp Pulse Pulse Resp BP BP Pulse Ox 08/11/19 14:21 36.4 C L 88 16 112/74 97 08/11/19 14:15 36.4 C L 88 16 112/74 97 08/11/19 13:25 36.4 C L 89 16 118/74 95 08/11/19 12:25 36.5 C 90 16 116/77 96 08/11/19 11:56 36.4 C L 112 H 18 128/74 92 08/11/19 11:55 36.4 C L 91 H 16 121/77 97 08/11/19 11:40 36.4 C L 89 16 117/75 97 08/11/19 11:23 36.4 C L 89 16 120/75 97 08/11/19 07:30 36.4 C L 93 H 20 122/82 97 Laboratory Results 08/11/19 08/11/19 08/11/19 Range/Units 09:36 09:36 07:41 WBC (4.8-10.8) K/uL RBC (4.7-6.1) M/uL Hgb (14.0-18.0) g/dL Hct (42-52) % MCV (80-100) fL MCH (25-34) pg MCHC (32-36) g/dL RDW Std Deviation (36.4-46.3) fL RDW Coeff of Danelle (11.5-14.5) % Plt Count (130-400) K/uL MPV (7.4-10.4) fL Platelet Estimate (Normal) Haptoglobin (43-212) mg/dL Sodium 142 (136-145) mmol/L Potassium 3.6 (3.5-5.1) mmol/L Chloride 110 H (98-107) mmol/L Carbon Dioxide 26 (21-32) mmol/L Anion Gap 5.0 (3-11) BUN 17 (7-18) mg/dl Creatinine 1.13 (0.6-1.4) mg/dl Est Cr Clr Drug Dosing 83.9 ml/min Est GFR ( Amer) 79.7 Est GFR (Non-Af Amer) 68.8 BUN/Creatinine Ratio 14.9 (10-20) Glucose 113 H (70-99) mg/dl Calcium 8.0 L (8.5-10.1) mg/dl Phosphorus 3.1 (2.5-4.9) mg/dl Magnesium 2.0 (1.8-2.4) mg/dl Total Bilirubin 0.6 (0.2-1) mg/dl AST 35 (15-37) U/L ALT 9 L (12-78) U/L Alkaline Phosphatase 71 (45-117) U/L Troponin I 0.043 (0-0.045) ng/ml Total Protein 4.9 L (6.4-8.2) gm/dl Albumin 2.2 L (3.4-5.0) gm/dl Globulin 2.7 (2.5-4.0) gm/dl Albumin/Globulin Ratio 0.8 L (0.9-2) Blood Type AB Negative Antibody Screen NEGATIVE Crossmatch See Detail 08/11/19 08/10/19 08/10/19 Range/Units 07:41 20:29 12:03 WBC 4.93 6.05 (4.8-10.8) K/uL RBC 2.61 L 2.80 L (4.7-6.1) M/uL Hgb 7.4 L 7.8 L (14.0-18.0) g/dL Hct 23.6 L 24.9 L (42-52) % MCV 90.4 88.9 (80-100) fL MCH 28.4 27.9 (25-34) pg MCHC 31.4 L 31.3 L (32-36) g/dL RDW Std Deviation 57.2 H 55.9 H (36.4-46.3) fL RDW Coeff of Danelle 17.3 H 17.3 H (11.5-14.5) % Plt Count 97 L 111 L (130-400) K/uL MPV 11.1 H 10.5 H (7.4-10.4) fL Platelet Estimate Decreased L (Normal) Haptoglobin 199 (43-212) mg/dL Sodium (136-145) mmol/L Potassium (3.5-5.1) mmol/L Chloride (98-107) mmol/L Carbon Dioxide (21-32) mmol/L Anion Gap (3-11) BUN (7-18) mg/dl Creatinine (0.6-1.4) mg/dl Est Cr Clr Drug Dosing ml/min Est GFR ( Amer) Est GFR (Non-Af Amer) BUN/Creatinine Ratio (10-20) Glucose (70-99) mg/dl Calcium (8.5-10.1) mg/dl Phosphorus (2.5-4.9) mg/dl Magnesium (1.8-2.4) mg/dl Total Bilirubin (0.2-1) mg/dl AST (15-37) U/L ALT (12-78) U/L Alkaline Phosphatase (45-117) U/L Troponin I (0-0.045) ng/ml Total Protein (6.4-8.2) gm/dl Albumin (3.4-5.0) gm/dl Globulin (2.5-4.0) gm/dl Albumin/Globulin Ratio (0.9-2) Blood Type Antibody Screen Crossmatch PG Care Time/CCT Total # of Minutes Spent Total Time Spent with Patient: Total time spent is greater than 50% in coordination of care (as documented) at patient's floor/unit and/or counseling patient: (1) Anemia Anemia type: unspecified type Qualified Code(s): D64.9 - Anemia, unspecified (2) Abdominal pain Abdominal location: unspecified location Qualified Code(s): R10.9 - Unspecified abdominal pain
[2019-08-11] MEDS: LORazepam 1 MG TAB PO PRN (20:56)
[2019-08-12] MEDS: FAMOTIDINE 20 MG in SYRINGE 3 ML IV SCH (03:26)
[2019-08-12] MEDS: CEFEPIME 2,000 MG in SYRINGE 7.5 ML IV SCH ×2 (06:24→12:46)
[2019-08-12] MEDS: HYDROmorphone HCL 2 MG TAB PO PRN (06:27)
[2019-08-12 07:45] LABS: Hematocrit (blood only) 27.2 % (42-52); Hemoglobin 8.7 g/dL (14.0-18.0); Mean Corpuscular Hemoglobin 28.2 pg (25-34); Mean Corpuscular Volume 88.3 fL (80-100); RDW Standard Deviation 54.9 fL (36.4-46.3); Red Blood Count 3.08 M/uL (4.7-6.1); White Blood Count 6.09 K/uL (4.8-10.8)
[2019-08-12 08:12] VITALS: BP 111/73; PULSE 95; TEMP 97.7; O2SAT 94
[2019-08-12 08:12] LABS: Mean Platelet Volume 10.5 fL (7.4-10.4); Platelet Count 92 K/uL (130-400)
[2019-08-12 08:13] LABS: Basophils # (auto) 0.03 K/uL (0-0.2); Basophils % (auto) 0.5 %; Eosinophils # (auto) 0.09 K/uL (0-0.5); Eosinophils % (auto) 1.5 %; Immature Granulocytes # (auto) 0.05 K/uL (0.00-0.02); Immature Granulocytes % (auto) 0.8 %; Lymphocytes # (auto) 0.35 K/uL (1.2-3.4); Lymphocytes % (auto) 5.7 %; Monocytes # (auto) 0.76 K/uL (0.11-0.59); Monocytes % (auto) 12.5 %; Neutrophils # (auto) 4.81 K/uL (1.4-6.5)
[2019-08-12] MEDS: CITALOPRAM 20 MG TAB PO SCH (08:17)
[2019-08-12] MEDS: LACTULOSE SYRUP 20 GM/30 ML UDC PO SCH (08:17)
[2019-08-12 08:23] LABS: Albumin Level 2.1 gm/dl (3.4-5.0); BUN Creatinine Ratio 16.3 (10-20); Calcium 8.3 mg/dl (8.5-10.1); Creatinine Clr Calc Pharmacy 80.7 ml/min; Est GFR (African American) 76.4; Magnesium 2.1 mg/dl (1.8-2.4); Potassium 3.7 mmol/L (3.5-5.1)
[2019-08-12] MEDS: DOCUSATE SODIUM 100 MG CAP PO SCH (08:24)
[2019-08-12 08:26] LABS: Albumin Globulin Ratio 0.7 (0.9-2); Bilirubin,Total 0.6 mg/dl (0.2-1); Globulin 2.9 gm/dl (2.5-4.0)
--- NOTE | 2019-08-12 09:49 | Hematology/Oncology Prog Note ---
Date of Service August 12, 2019 Assessment & Plan (1) Anemia: His hemoglobin is improved. It is not clear why we had such a difficult time getting his counts up initially. That being said, he is back to the level he was in prior to admission. His chronic anemia is likely related to maligna ncy, anemia of chronic disease, and prior chemotherapy. Present on Admission?: Yes (2) Prolonged QT interval: His QTc was better on a repeat EKG. I would discharge him off of all QTc prolonging medications. We will also lower his Halaven dose and repeat an EKG before and 24 hours after treatment. If his QTc prolongs again, we will need to move on to a different therapy. 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 I reviewed his situation with his primary oncologist and we discussed retreatment with Halaven, as discussed above, along with some alternative options if his QTc prolongs again. We will make arrangements for his outpatient follow up. Present on Admission?: Yes Subjective Mr. Rodriguez looks well today. His energy is up, he's eating more, and his pain is under control. He was up walking with PT yesterday and did well. Review of Systems Constitutional: + fatigue and + increased appetite Respiratory: no dyspnea Gastrointestinal: + abdominal pain (improved); no nausea Neurologic: no headache(s) Hematologic / Lymphatic: no easy bleeding Physical Exam Constitutional: + ill appearing (chronically) and + obese; no acute distress ENMT: external ear and nose normal, oropharynx normal Respiratory: normal respiratory effort, lungs clear to auscultation Cardiovascular: RRR, no murmur, no edema Gastrointestinal (Abdomen): Inspection/Auscultation: + abdomen distended and normal bowel sounds Percussion/Palpation: + abdomen tender (diffusely) and abdomen soft Psychiatric: A+Ox3, euthymic affect Results & Data Vital Signs (Past 12 Hours) Vital Signs Temp Pulse Resp BP Pulse Ox 08/12/19 08:11 36.5 C 95 H 20 111/73 94 08/12/19 04:04 37 C 105 H 20 116/73 98 08/11/19 23:37 36.4 C L 92 H 19 126/81 94 Laboratory Results Abnormal lab results 08/11/19 08/12/19 08/12/19 Range/Units 09:36 07:26 07:26 RBC 3.08 L (4.7-6.1) M/uL Hgb 8.7 L (14.0-18.0) g/dL Hct 27.2 L (42-52) % RDW Std Deviation 54.9 H (36.4-46.3) fL RDW Coeff of Danelle 17.0 H (11.5-14.5) % Plt Count 92 L (130-400) K/uL MPV 10.5 H (7.4-10.4) fL Immature Gran # (Auto) 0.05 H (0.00-0.02) K/uL Lymph # (Auto) 0.35 L (1.2-3.4) K/uL [place] # (Auto) 0.76 H (0.11-0.59) K/uL Chloride 110 H (98-107) mmol/L BUN 19 H (7-18) mg/dl Calcium 8.3 L (8.5-10.1) mg/dl ALT 10 L (12-78) U/L Total Protein 5.0 L (6.4-8.2) gm/dl Albumin 2.1 L (3.4-5.0) gm/dl Albumin/Globulin Ratio 0.7 L (0.9-2) Crossmatch See Detail (1) Anemia Anemia type: unspecified type Qualified Code(s): D64.9 - Anemia, unspecified
--- NOTE | 2019-08-12 12:18 | Discharge Summary ---
Date of Service August 12, 2019 Admission HPI Per Admitting Provider This is a 63-year-old male with PMHx of pancreatic sarcoma, diagnosed in April 2019, anemia, and weakness. The patient's family is present with him at bedside. His notes that this morning he seemed to be more confused, hallucinating and seeing things that were not really present in their home. She reports that he has been more weak in the last 2 days. He has not moved his bowels in the last 5 days. In regards to abdominal distention and bloating, patient feels this has worsened despite bowel regimen with lactulose, Colace, MiraLAX at home. He started lactulose yesterday and have his received a few doses but still not produced a bowel movement. His appetite has been very poor recently due to disinterest in food. He denies nausea or vomiting today. Patient denies any specific abdominal pain currently after receiving IV medication in the ER. Patient follows with Dr. Carmona at [facility] for oncology. He follows with Dr. Dunne at the [facility] [place] here for chemotherapy. Patient has underwent 4 cycles of doxorubicin, however did not see positive results so has been switched over to Eribulin where he received his first cycle on 08/04/2019. His next scheduled dose will be on 08/12/19. Here in the ER and patient is found to have a hemoglobin of 7.7, currently being transfused his first unit out of 2, also noted to have elevated troponin of 0.061, albumin 2.4. Other labs are WNL. Discharge Exam Constitutional WD/WN, vitals as above (with alopecia) Eyes PERRL, conjunctivae normal, anicteric sclerae + anicteric sclerae ENMT external ear and nose normal, oropharynx normal Neck trachea midline, no thyromegaly Respiratory normal respiratory effort, lungs clear to auscultation no labored breathing Auscultation: + crackles (at bases bilat); no rhonchi and no wheezes Cardiovascular RRR, no murmur, no edema Chest (Breasts) Chest: normal inspection of chest Gastrointestinal (Abdomen) Inspection/Auscultation: abdomen normal to inspection, + abdomen distended (mild) and normal bowel sounds; Maritn-Castillo sign absent Percussion/Palpation: + abdomen tender (Minimally tender across entire upper abdomen), abdomen soft and + hepatomegaly; no guarding and abdomen not rigid Musculoskeletal Extremities: extremities normal to inspection; no cyanosis and no clubbing Skin no rashes, warm and dry no ecchymosis (No hematomas or ecchymosis with whole body skin check) Neurologic moves all extremities and awake; no focal motor deficits Psychiatric A+Ox3, euthymic affect Orientation: alert (But getting drowsy) Speech: normal rate/rhythm/volume of speech Affect: + flat affect Lymphatic + cervical lymphadenopathy (on right anterior cervical); no lymphedema Discharge Data Allergies Allergy/AdvReac Type Severity Reaction Status Date / Time No Known Allergies Allergy Verified 08/08/19 13:10 Consultations 08/08/19 15:37 ED Decision to Admit Stat 08/08/19 20:18 Consult Case Management - Discharge Planning Routine 08/09/19 08:31 Consult Oncology Routine 08/09/19 15:05 Consult Cardiology Routine Ordered Studies 08/08/19 15:38 CT angio chest PE protocol Stat 08/09/19 09:45 CT abd pelvis oral and IV con Routine Hospital Course (1) Acute metabolic encephalopathy: Presented with hallucinations, profound fatigue in setting of recent chemotherapy with Eribulin on 08/04. Could be secondary to severe anemia, hypoxia, infection (suspected PNA as below), opioid pain medication use, constipation Encephalopathy now completely resolved with resolution of constipation, and anemia improved with PRBC transfusion, as well as treatment for suspected pneumonia with antibiotics. -Follow clinically (2) Weakness: Secondary to chemotherapy effect, severe anemia, possible PNA -treating with transfusional support, antibiotics, is significantly improved. He ambulated quite well up and down the halls today with physical therapy (3) Constipation: Likely opioid induced Now with multiple brown bowel movements daily-resolved -Continue lactulose and colace at current doses - No obstruction seen on KUB or CT abd/pel, but duodenum is being pushed out due to invasion of retroperitoneal space - pancreatic mass and bowel loops surrounding mass causing constipation. (4) Abdominal pain: -secondary to retroperitoneal tumor, with mass effect on liver, pancreas, perhaps some mild ileus due to opioids No retroperitoneal bleeding seen on CT, no obstruction, moving bowels and passing gas daily - Was taking Dilaudid p.o. 4 mg Q4H scheduled vs prn at home and likely contributed to the patient's constipation -continue pain control, Pepcid, bowel regimen -Continue IV and p.o. Dilaudid as needed and increased frequency of p.o. Dilaudid to every 3 hours-encouraged use of p.o. medicine rather than IV at this point to transition to home (5) Elevated troponin: -Elevated at 0.061/0.06/0.055, repeat troponin now back to normal Denies chest pain ever -EKG with nonspecific TW changes anterior leads, prolonged QTc 622 as per report on ECG but mold setter review reports that this was a false reading--> repeat ECG then with resolution of TWIs and QTc now normal -Noted mild pericardial effusion on imaging -ECHO with +WMA moderate inferior and septal hypokinesis, preserved LVEF, new from previous ECHO 04/2019 -not a good candidate to undergo cardiac cath and doubt would help him at all -consult Cardiology for further opinion is appreciated-recommends aspirin, statin, beta-indy if can tolerate considering other comorbidities, but will not further investigate with cardiac cath given comorbidities as well -Continue telemetry monitoring More likely myocardial demand ischemia in setting of severe anemia, suspected PNA -We will hold off on starting aspirin at this time due to thrombocytopenia and anemia -Hold off on starting statin as would likely not have much benefit given his overall poor prognosis with his sarcoma -We will consider adding on low-dose beta-indy if can tolerate at the time of discharge (6) Hypoxia: -Initially was hypoxic at 86% on room air, was requiring 2 L nasal cannula-now weaned off of oxygen with improved pain control, less splinting, and increased ambulation to resolve atelectasis - CTPE negative for PE, shows mild Left pleural effusion and possible LLL infiltrate vs atelectasis -Subsequent CT abd/pel showed extensive atelectasis L>>R in lower lobes -Likely secondary to atelectasis from splinting due to abdominal pain -Also suspected PNA and given that he is immunosupressed, started treatment with Cefepime and Vanco -Now that MRSA swab is negative-DCd vancomycin -encouraged incentive spirometry -continue O2 as needed to keep POx>94%-none needed at this point (7) Anemia: Secondary likely to chemotherapy Hgb slight drop again today to 7.4 after receiving 4 units of blood this hospitalization No evidence of bleeding at all No bleeding in retroperitoneal space on imaging Hemoccult stool negative 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 Likely secondary to recent chemotherapy No evidence of hemolysis-LDH is chronically elevated likely secondary to his cancer, d-dimer is massively elevated secondary to cancer as well, total bilirubin is normal, haptoglobin is pending -Transfuse 2 more units PRBCs today -Follow CBC in the morning (8) Thrombocytopenia: Plts remain mildly low but fairly stable at 97, likely secondary to chemotherapy -follow CBC (9) Abnormal echocardiogram: with +WMAs as above and small pericardial effusion -Appreciate cardiology recommendations (10) Pneumonia: Suspected LLL on CT Chest, with profound fatigue, no leukocytosis or fever, but is immunosupressed so will treat -started Cefepime and Vanco but now discontinued vancomycin as above -We will convert to oral antibiotics upon discharge to finish out a 7-day course (11) Prolonged QT interval: QTc was falsely read as 622 on admission ECG, however review as per cardio logy states that that was an over read/missed read by the computer-QTC is actually more in the 400 range and this has been corrected now on the ECG Repeat ECG QTC normal Magnesium normal -dc lia Wolff to restart Celexa -follow on tele (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 Mckenzie with [facility] - currently on Eribulin chemotherapy per oncology after failing adriamycin, doxyrubicin - Consult oncology, Dr. Dunne, appreciated -pain control, bowel regimen continues as above -Dr. Dunne is in contact with the oncologist at [facility] and they have come up with a plan for future treatment Overall poor prognosis unfortunately (13) Fatigue: secondary to chemotherapy vs infection, anemia as above, and side effect of opioid drugs Much improved -UA normal -transfused, continue abx for PNA (14) Elevated transaminase level: mild elevation in AST which is down from previous (15) GERD (gastroesophageal reflux disease): Improved -Continue Pepcid 20mg IV bid for heartburn and convert to p.o. at discharge (16) DVT prophylaxis: -Hold Lovenox for anemia and thrombocytopenia, ambulatory, scd CODE STATUS-DNR Dispo: Patient from home, PT/OT recommend return home possible dc to home tomorrow Discharge Plan Discharge Items Patient Disposition: Home - Home Health Services Reason For Visit: SARCOMA, ANEMIC, CONSTIPATION Discharge Diagnosis: Severe anemia secondary to chemotherapy, Confusion, Abdominal pain, Suspected pneumonia Condition on Discharge: Fair Activity: As commented below Bathing: No limitations Exercise/Sports: As tolerated Non-emergency contact: Primary Care Provider and Oncologist Call non-emergency contact if: you have any medication questions, your symptoms worsen, your pain is not controlled, your pain is worsening, your pain is unusual for you, your pain is concerning for you, you have a fever and your temperature is above 101 Follow-up/Referrals: Brooks Chu MD [Physician] - 09/21/18 3:30 pm Stephen Lock MD [Primary Care Provider] - Diet: Regular Addtl Attending Provider Instructions: Please finish out the course of antibiotics as prescribed. You can use the magic mouthwash as needed for mouth sores. Your Celexa will be tapered down as follows: Take Celexa 10mg daily x 2 days starting on 08/13/19. Then STOP taking as of 08/15/19 START Remeron 7.5mg qt bedtime for your new antidepressant on the evening of 08/13/19. Your Mental Health RN or PCP can further manage the dosing of your Remeron if you need it. Continue to take the lactulose for constipation and the dilaudid as needed for abdominal pain. Follow up with your Oncologist next week as scheduled for ECG, blood work, and chemotherapy. Please follow up with your PCP within 1-2 weeks after discharge. Pending Studies at Discharge: No Stand-Alone Forms: [facility] Medications and DC Order Prescriptions: New docusate sodium 100 mg Capsule 100 mg PO BID Qty: 60 RF: 0 mirtazapine [Remeron] 15 mg tablet 7.5 mg PO HS Qty: 15 RF: 0 cefdinir 300 mg capsule 300 mg PO Q12H 3 Days Qty: 6 RF: 0 Continued lorazepam 1 mg tablet 1 mg PO BID PRN (Reason: Sleep) RF: 0 lactulose 10 gram/15 mL solution 30 ml PO TID RF: 0 Changed hydromorphone 2 mg tablet 4 mg PO Q3H PRN (Reason: Pain) Qty: 30 RF: 0 citalopram 20 mg tablet 10 mg PO QAM 2 Days Qty: 1 RF: 0 Discontinued ondansetron HCl 8 mg tablet 8 mg PO TID PRN (Reason: Nausea) RF: 0 Discharge Orders: Discharge Order (Routine); Ordered 08/12/19 Ordered By: Claudia Hahn Admission Data Admit Date/Time: 08/08/19 17:54 Attending Provider: Claudia Hahn Admit Provider: Adrian Moncada Primary Care Provider: Stephen Lock Other Providers: Adrian Moncada ; Henri Dunne ; Brooks Chu ; [facility]
[2019-08-12] MEDS ORDERED: FAMOTIDINE 20 MG TAB PO SCH (21:00)
== END 2019-08-12 14:06 | disposition home health service (06) | DRG 811 ==
LOC: ED 12:23 → SUATTDRO 17:54 → 4W 17:54 → 2S 08-09 11:25